=== PATIENT | male | born 1950 | race Caucasian/White ===

== ENCOUNTER 2017-06-26 14:51 | Inpatient (IN) | payer OTHER, BC ==
[~2017-06-26] VITALS: Ht 165.1 cm; Wt 85.6 kg
[~2017-06-26 14:51] MED LIST: ALBU8.5H3 INH; DOXA2TAB PO; GABA100C14 PO; GLIP-160 PO; LANT3I SC; LOSA25TA2 PO; MAG355OR15 PO; METF1000 PO; MULTI PO; NAPR500T8 PO; SENN-53 PO; SITA100T8 PO
[2017-06-26] MEDS ORDERED: ONDANSETRON 4 MG INJ IV STA (16:57)
[2017-06-26] MEDS ORDERED: morphine 4 MG/ML VIAL IV STA (16:57)
[2017-06-26] MEDS ORDERED: FAMOTIDINE 20 MG INJ IV STA (16:57)
[2017-06-26] MEDS ORDERED: SOD CHLORIDE 0.9% 1,000 ML IV STA (16:57)
[2017-06-26] MEDS ORDERED: ACETAMINOPHEN 325 MG TAB PO ONE (17:00)
[2017-06-26 17:19] LABS: ABNORMAL IP MESSAGE 1; BASOPHIL # 0.1 10^3/ul (0.0-0.1); BASOPHILS % 0.3 % (0.0-2.0); HEMATOCRIT 38.5 % (42.0-52.0); HEMOGLOBIN 13.7 g/dl (14.0-18.0); LYMPHOCYTES % 4.1 % (15.0-51.0); MEAN CORPUSCULAR HEMOGLOBIN 29.7 pg (29.0-33.0); MEAN CORPUSCULAR HGB CONC 35.6 g/dl (32.0-37.0); MEAN CORPUSCULAR VOLUME 83.5 fl (82.0-101.0); MEAN PLATELET VOLUME 13.7 fl (7.4-10.4); MONOCYTE # 1.7 10^3/ul (0.3-0.9); MONOCYTES % 6.9 % (0.0-11.0); NEUTROPHIL # 21.6 10^3/ul (1.6-7.5); NEUTROPHILS % 86.4 % (39.0-77.0); PLATELET COUNT 174 10^3/UL (140-415); POSITIVE DIFF @See below; RED BLOOD COUNT 4.61 10^6/ul (4.70-6.10); RED CELL DISTRIBUTION WIDTH 14.8 % (11.5-14.5); WHITE BLOOD COUNT 24.9 10^3/ul (4.8-10.8)
--- NOTE | 2017-06-26 17:32 | RADRPT ---
PROCEDURE: Right upper quadrant ultrasound CLINICAL INDICATION: Abdominal pain TECHNIQUE: Multiple real-time images were acquired of the patient's abdomen and right retroperiton eum utilizing a high resolution transducer. COMPARISON: None FINDINGS: The liver is increased in echogenicity and measures 17.5 cm. No focal hepatic masses are seen. The gallbladder is physiologically distended. There is no evidence of gallstones, gallbladder wall thi ckening, or pericholecystic fluid. The intra and extrahepatic bile ducts are normal in caliber. Th e common bile duct measures 3.5 mm. Pancreas is not visualized due to overlying bowel gas Survey views of the right kidney demonstrate no evidence of hydronephrosis or renal calculi. The ri ght kidney measures 11.9 cm. IMPRESSION: 1. No evidence of cholelithiasis or acute cholecystitis. 2. Fatty liver 3. Pancreas not visualized RPTAT: HH .Da Mckeon MD, Date Time Electronically viewed and signed by .Da Mckeon MD, MD on 06/26/2017 17:32 .W/
[2017-06-26 17:42] LABS: ALBUMIN 4.4 g/dl (3.3-4.9); ALBUMIN/GLOBULIN RATIO 1.18; BILIRUBIN,INDIRECT 1.3 mg/dl (0-1.1); BILIRUBIN,TOTAL 1.3 mg/dl (0.2-1.3); CALCIUM 10.1 mg/dl (8.4-10.2); CREATININE 0.72 mg/dl (0.61-1.24); POTASSIUM 4.1 mmol/L (3.5-5.1); TOTAL PROTEIN 8.1 g/dl (6.1-8.1)
[2017-06-26] MEDS ORDERED: SODIUM CHLORIDE 0.9% 1L BAG IV* STA (17:58)
[2017-06-26] MEDS ORDERED: PIPER-TAZO 3.375 GM IV (PMX) 100 ML IVPB STA (17:58)
--- NOTE | 2017-06-26 18:08 | ERA ---
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 No relieving or exacerbating factors. Anorexia but ate breakfast this morning. Denies nausea, vomiting, diarrhea or constipation. Mild dysuria but no polyuria, hematuria or flank pain. No recent travel, ill contacts or contaminated food exposure. His chest pain, palpitations or shortness of breath. No skin rash. Denies headache, neck pain , visual changes, focal weakness or numbness. Chills but no fevers. ROS All systems reviewed and are negative except as per history of present illness. Allergies Allergies: Coded Allergies: hydrocodone (Verified Allergy, Intermediate, DIFFICULTY BREATHING, ) PMhx/Soc Reviewed in chart. As per HPI. History of Surgery: Yes (appendectomy) Anesthesia Reaction: No Hx Neurological Disorder: No Hx Respiratory Disorders: No Hx Cardiac Disorders: Yes (htn) Hx Psychiatric Problems: No Hx Miscellaneous Medical Probl: Yes (dm, diverticulitis) Hx Alcohol Use: No Hx Substance Use: No Hx Tobacco Use: No Smoking Status: Never smoker FmHx Reviewed in chart. Not relevant to presenting complaint Physical Exam Vitals Vital Signs Date Time Temp Pulse Resp B/P Pulse Ox O2 Delivery O2 Flow Rate FiO2 06/26/17 22:27 72 17 121/62 95 Room Air 06/26/17 20:21 99.2 78 17 117/59 96 Room Air 06/26/17 14:56 100.6 84 18 128/60 97 Physical Exam Const: Alert, moderate distress due to pain Head: Atraumatic Eyes: Normal Conjunctiva. Anicteric. ENT: Normal External Ears, Nose and Mouth. Neck: Full range of motion. Nontender with no meningismus. Resp: Clear to auscultation bilaterally Cardio: Regular rate and rhythm, no murmurs Abd: Soft, diffuse, upper abdominal tenderness which localizes to the right upper quadrant. Positive Serrato sign. Skin: No petechiae or rashes Back: No midline or flank tenderness Ext: No cyanosis, or edema Neur: Awake and alert. Right-sided weakness with right claw hand. Psych: Normal Mood and Affect Result Diagram: 06/26/17 1705 06/26/17 1705 Results 24 hrs Laboratory Tests Test 06/26/17 17:05 06/26/17 17:07 06/26/17 18:00 06/26/17 18:33 White Blood Count 24.910^3/ul Red Blood Count 4.6110^6/ul Hemoglobin 13.7g/dl Hematocrit 38.5% Mean Corpuscular Volume 83.5fl Mean Corpuscular Hemoglobin 29.7pg Mean Corpuscular Hemoglobin Concent 35.6g/dl Red Cell Distribution Width 14.8% Platelet Count 29773^3/UL Mean Platelet Volume 13.7fl Neutrophils % 86.4% Lymphocytes % 4.1% Monocytes % 6.9% Eosinophils % 0.0% Basophils % 0.3% Nucleated Red Blood Cells % 0.0/100WBC Neutrophils # 21.610^3/ul Lymphocytes # 1.010^3/ul Monocytes # 1.710^3/ul Eosinophils # 0.010^3/ul Basophils # 0.110^3/ul Nucleated Red Blood Cells # 0.010^3/ul Sodium Level 139mmol/L Potassium Level 4.1mmol/L Chloride Level 100mmol/L Carbon Dioxide Level 26mmol/L Anion Gap 17 Blood Urea Nitrogen 19mg/dl Creatinine 0.72mg/dl Glucose Level 244mg/dl Calcium Level 10.1mg/dl Total Bilirubin 1.3mg/dl Direct Bilirubin 0.00mg/dl Indirect Bilirubin 1.3mg/dl Aspartate Amino Transf (AST/SGOT) 32IU/L Alanine Aminotransferase (ALT/SGPT) 58IU/L Alkaline Phosphatase 86IU/L Total Protein 8.1g/dl Albumin 4.4g/dl Globulin 3.70g/dl Albumin/Globulin Ratio 1.18 Lipase 48U/L Bedside Glucose 238mg/dL Lactic Acid Level 2.9mmol/L Urine Color YELLOW Urine Clarity CLEAR Urine pH 7.0 Urine Specific [place] 1.023 Urine Ketones 1+mg/dL Urine Nitrite NEGATIVEmg/dL Urine Bilirubin NEGATIVEmg/dL Urine Urobilinogen NEGATIVEmg/dL Urine Leukocyte Esterase NEGATIVELeu/ul Urine Microscopic RBC 1/HPF Urine Microscopic WBC 0/HPF Urine Hemoglobin NEGATIVEmg/dL Urine Glucose 3+mg/dL Urine Total Protein 1+mg/dl Test 06/26/17 19:58 06/26/17 21:07 06/26/17 21:52 Lactic Acid Level 2.3mmol/L 1.5mmol/L Bedside Glucose 166mg/dL Current Medications Medications (Trade) Dose Ordered Sig/Eve Route PRN Reason Start Time Stop Time Status Last Admin Dose Admin Sodium Chloride (NS) 1,000 ml @ 1,000 mls/hr Q1H STAT IV 06/26/17 16:57 06/26/17 17:56 DC 06/26/17 17:46 Morphine Sulfate (morphine) 4 mg ONCE STAT IV 06/26/17 16:57 06/26/17 17:01 DC 06/26/17 17:46 Ondansetron HCl (Zofran Inj) 4 mg ONCE STAT IV 06/26/17 16:57 06/26/17 17:01 DC 06/26/17 17:46 Famotidine (Pepcid Iv) 20 mg ONCE STAT IV 06/26/17 16:57 06/26/17 17:01 DC 06/26/17 17:46 Acetaminophen (Tylenol Tab) 650 mg ONCE ONCE PO 06/26/17 17:00 06/26/17 17:01 DC 06/26/17 17:46 Sodium Chloride 1600 ml 1,600 ml BOLUS OVER 2 HOURS STAT IV* 06/26/17 17:58 06/26/17 18:01 DC 06/26/17 18:04 Piperacillin Sod/ Tazobactam Sod (Zosyn 3.375gm/ 100 ml (Pmx)) 100 ml @ 200 mls/hr ONCE STAT IVPB 06/26/17 17:58 06/26/17 18:27 DC 06/26/17 18:15 IV Flush 10 ml 10 ml STK-MED ONCE .ROUTE 06/26/17 18:43 06/26/17 18:44 DC 06/26/17 18:50 Sodium Chloride (NS) 100 ml @ ud STK-MED ONCE .ROUTE 06/26/17 18:43 06/26/17 18:44 DC 06/26/17 18:50 Iohexol (Omnipaque 300mg/ ml) 150 ml STK-MED ONCE .ROUTE 06/26/17 18:43 06/26/17 18:44 DC 06/26/17 18:50 Ondansetron HCl (Zofran Inj) 4 mg ER BRIDGE PRN IV NAUSEA AND/OR VOMITING 06/26/17 20:00 06/26/17 20:10 DC Acetaminophen 650 mg 650 mg ER BRIDGE PRN PO MILD PAIN/FEVER 06/26/17 20:00 06/26/17 20:10 DC Dextrose/Sodium Chloride (D5-1/2ns) 1,000 ml @ 100 mls/hr Q10H IV 06/26/17 20:04 06/26/17 21:09 IV Flush (NS 3 ml) 3 ml PER PROTOCOL IV 06/26/17 20:30 Ondansetron HCl (Zofran Inj) 4 mg Q6H PRN IV NAUSEA AND/OR VOMITING 06/26/17 20:30 Acetaminophen (Tylenol Tab) 650 mg Q6H PRN PO PAIN LEVEL 1-3 OR FEVER 06/26/17 20:30 Hydromorphone HCl 0.5 mg 0.5 mg Q4H PRN IV SEVERE PAIN LEVEL 7-10 06/26/17 20:30 Piperacillin Sod/ Tazobactam Sod (Zosyn 3.375gm/ 100 ml (Pmx)) 100 ml @ 200 mls/hr ONCE IVPB 06/26/17 22:30 06/26/17 22:59 DC PROCEDURE: XR Chest. CLINICAL INDICATION: Possible sepsis. TECHNIQUE: Single frontal view of the chest COMPARISON: None. FINDINGS: Cardiomegaly. Atherosclerotic calcifications in the tortuous thoracic aorta. Elevated right hemidiaphragm. Mild vascular crowding at the right lung base. The lungs are otherwise clear. No signs of pleural fluid or pneumothorax are seen. The osseous structures and soft tissues are unremarkable. IMPRESSION: 1. Mild elevation right hemidiaphragm with mild vascular crowding at the right lung base. 2. Otherwise, no evidence for active cardiopulmonary disease. RPTAT: [facility] Physician Nimisha Date Time Electronically viewed and signed by Physician Nimisha on 06/26/2017 18:55 RS/ PROCEDURE: Right upper quadrant ultrasound CLINICAL INDICATION: Abdominal pain TECHNIQUE: Multiple real-time images were acquired of the patient's abdomen and right retroperitoneum utilizing a high resolution transducer. COMPARISON: None FINDINGS: The liver is increased in echogenicity and measures 17.5 cm. No focal hepatic masses are seen. The gallbladder is physiologically distended. There is no evidence of gallstones, gallbladder wall thickening, or pericholecystic fluid. The intra and extrahepatic bile ducts are normal in caliber. The common bile duct measures 3.5 mm. Pancreas is not visualized due to overlying bowel gas Survey views of the right kidney demonstrate no evidence of hydronephrosis or renal calculi. The right kidney measures 11.9 cm. IMPRESSION: 1. No evidence of cholelithiasis or acute cholecystitis. 2. Fatty liver 3. Pancreas not visualized RPTAT: HH .Da Mckeon MD, MD Date Time Electronically viewed and signed by .Da Mckeon MD, MD on 06/26/2017 17:32 .W/ PROCEDURE: CT ABDOMEN AND PELVIS WITH CONTRAST CLINICAL INDICATION: 66-year of age, male. 3-day history of upper abdominal pain.. TECHNIQUE: CT of the abdomen and pelvis was performed following administration of 90 mL IV Omnipaque-300. Oral contrast was not administered prior to the examination. Coronal and sagittal reformatted images were obtained from the axial source images. Images were reviewed on a high-resolution PACS workstation. Dose information: Based on a 32 cm phantom, the estimated radiation dose ( CTDIvol mGy for each series in this exam is 18. The estimated cumulative dose ( DLP mGy-cm) is 1076. One or more of the following dose reduction techniques were used: - Automated exposure control. - Adjustment of the mA and/or kV according to patient size. - Use of iterative reconstruction technique. COMPARISON: Right upper quadrant ultrasound from the same day FINDINGS: LUNG BASES: Mild coronary artery calcification. ABDOMEN/PELVIS: Liver: Diffuse hepatic steatosis and hepatomegaly. Liver measures 22 cm in length. Portal veins, splenic vein and SMV are patent. Hepatic veins are patent. Gallbladder: Gallbladder is distended with mild wall thickening and edema in the pericholecystic fat. Bile ducts: No intrahepatic or extrahepatic biliary duct dilatation. Spleen: Normal. Pancreas: Normal. Adrenal glands: Normal. Kidneys and ureters: Small bilateral renal parenchymal cysts measuring up to 2.4 cm in the lower pole of the right kidney. Punctate nonobstructing calculus lower pole left kidney. Kidneys are normal size. Negative for ureteral calculi or hydronephrosis. Aorta and IVC: Atherosclerotic calcification of aorta and iliac vessels. Negative for abdominal aortic aneurysm. IVC is patent Lymph nodes: Normal. Gastrointestinal tract: Colonic diverticulosis greatest in sigmoid colon without diverticulitis. Bowel loops are decompressed. Appendix: Surgically absent Bladder: Normal. Pelvic Organs: Prostate gland and seminal vesicles are unremarkable.. There is calcification of the vas deferens that suggests diabetes. Peritoneal cavity: No free fluid or free intraperitoneal air. Abdominal wall: Normal. BONES: Musculoskeletal: Multilevel degenerative changes in the spine. Status post laminectomy and posterior instrumented fusion with pedicle screws and rods from L4-S1. Height loss at T12 appears chronic. No suspicious bone lesions. IMPRESSION: 1. Distended gallbladder with wall thickening and pericholecystic edema is concerning for acute cholecystitis. Recent ultrasound was negative for gallstones and this could represent acalculous acute cholecystitis. Alternatively, gallbladder wall thickening may be due to liver disease. The patient may benefit from a HIDA scan. 2. Hepatic steatosis and hepatomegaly. Recommend correlation with liver tests to evaluate for potential steatohepatitis. 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 On arrival patient only had a low -grade fever but no other systemic inflammatory response syndrome criteria which was met due to leukocytosis of 24.6. Ultrasound of the right upper quadrant was negative for cholelithiasis or cholecystitis. However due to severe, ongoing pain and tenderness a CT scan of the abdomen and pelvis was performed which revealed dilated gallbladder with pericholecystic fluid consistent with acalculous cholecystitis. Severe sepsis initial lactate 2.9, repeat is pending. Within 3 hours of recognition patient received 30 cc/kg normal saline fluid bolus and Zosyn was given after cultures were obtained. No hypotension or criteria for septic shock. General surgery, Dr. Otoole was consulted. Patient's infectious symptoms have not stabilized and the patient is at risk of rapid decompensation. The patient will be admitted to telemetry for urgent surgical consultation, careful hydration, antibiotic therapy, and infectious source control. Counseled patient and family regarding diagnosis, diagnostic results and plan for admission. CALLS/CONSULTS: Time: 19:10, Dr. Pierce, will consult. CALLS/CONSULTS: Time: 19:40, Dr. Casiano, Recommends telemetry admission. PATIENT CARE TRANSITIONED: Time: 20:00, Dr. Casiano. Severe Sepsis criteria: Infectious source: Cholecystitis End organ damage indicated by: Lactate 2.9 Sepsis Management: Time systemic inflammatory response syndrome criteria met: 17:50 Time of recognition of severe sepsis/septic shock: 18:49 Within 3 hours of recognition: Blood cultures x 2 before broad-spectrum antibiotics: Yes 30 ml/kg NS bolus Completed Initial lactate 2.9 Repeat lactate 2.3 Septic Shock Assessment: Any lactic acid > 4.0 No Persistent hypotension (SBP < 90 or 40 mmHg drop, MAP < 65) despite 30 mL/kg IV fluid bolus: No Critical Care Time: 35 minutes Treatments/Evaluations: Close monitoring and treatment of unstable vital signs, cardiorespiratory, and neurologic status, while maintaining tight balance of fluid, respiratory, and cardiac interventions. This includes the administration of emergency fluid management while maintaining close respiratory support as well as the provision of immediate and broad-spectrum antibiotic therapy, while performing a simultaneous assessment for possible sources in order to direct targeted therapy. This time includes discussing the case with the patient and the patient's family. This time also includes the consideration for invasive and chemical support to prevent cardiopulmonary collapse. This time does not include all procedures stated elsewhere in this record. This time also includes reviewing old records, labs and radiological studies. This time includes examining and re-examining the patient. Additionally, this time also includes arranging care with admitting and consulting physicians. Departure Diagnosis: Primary Impression: Abdominal pain Qualified Code: R10.10 - Pain of upper abdomen Additional Impressions: Acute acalculous cholecystitis Severe sepsis Diabetes mellitus type 2 in obese Hypertension Qualified Code: I10 - Essential hypertension Condition: Serious JAMES LYON MD Jun 26, 2017 18:08
[2017-06-26] MEDS ORDERED: IOHEXOL 300MG/ML 150 ML BTL ONE (18:43)
[2017-06-26] MEDS ORDERED: SOD CHLORIDE 0.9% 100 ML ONE (18:43)
--- NOTE | 2017-06-26 18:55 | RADRPT ---
PROCEDURE: XR Chest. CLINICAL INDICATION: Possible sepsis. TECHNIQUE: Single frontal view of the chest COMPARISON: None. FINDINGS: Cardiomegaly. Atherosclerotic calcifications in the tortuous thoracic aorta. Elevated right hemidiaphragm. Mild vascular crowding at the right lung base. The lungs are otherwise clear. No signs of pleural fluid or pneumothorax are seen. The osseous structures and soft tissues are unremarkable. IMPRESSION: 1. Mild elevation right hemidiaphragm with mild vascular crowding at the right lung base. 2. Otherwise, no evidence for active cardiopulmonary disease. RPTAT: [facility] Physician Nimisha Date Time Electronically viewed and signed by Physician Nimisha on 06/26/2017 18:55 RS/
[2017-06-26 19:11] LABS: ADD UMIC YES; UR ASCORBIC ACID NEGATIVE (NEGATIVE); UR BILIRUBIN (Dip) NEGATIVE (NEGATIVE); UR BLOOD (Dip) NEGATIVE (NEGATIVE); UR CLARITY CLEAR (CLEAR); UR COLOR YELLOW (YELLOW); UR GLUCOSE (Dip) 3+ mg/dL (NEGATIVE); UR KETONES (Dip) 1+ mg/dL (NEGATIVE); UR LEUKOCYTE ESTERASE (Dip) NEGATIVE Leu/ul (NEGATIVE); UR NITRITE (Dip) NEGATIVE (NEGATIVE); UR RBC 1 /HPF (0-5); UR SPECIFIC GRAVITY (Dip) 1.023 (1.003-1.030); UR TOTAL PROTEIN (Dip) 1+ mg/dl (NEGATIVE); UR UROBILINOGEN (Dip) NEGATIVE (NEGATIVE)
--- NOTE | 2017-06-26 19:27 | RADRPT ---
PROCEDURE: CT ABDOMEN AND PELVIS WITH CONTRAST CLINICAL INDICATION: 66-year of age, male. 3-day history of upper abdominal pain.. TECHNIQUE: CT of the abdomen and pelvis was performed following administration of 90 mL IV Omnipaqu e-300. Oral contrast was not administered prior to the examination. Coronal and sagittal reformatted images were obtained from the axial source images. Images were revi ewed on a high-resolution PACS workstation. Dose information: Based on a 32 cm phantom, the estimated radiation dose (CTDIvol mGy for each serie s in this exam is 18. The estimated cumulative dose (DLP mGy-cm) is 1076. One or more of the following dose reduction techniques were used: - Automated exposure control. - Adjustment of the mA and/or kV according to patient size. - Use of iterative reconstruction technique. COMPARISON: Right upper quadrant ultrasound from the same day FINDINGS: LUNG BASES: Mild coronary artery calcification. ABDOMEN/PELVIS: Liver: Diffuse hepatic steatosis and hepatomegaly. Liver measures 22 cm in length. Portal veins, spl enic vein and SMV are patent. Hepatic veins are patent. Gallbladder: Gallbladder is distended with mild wall thickening and edema in the pericholecystic fat . Bile ducts: No intrahepatic or extrahepatic biliary duct dilatation. Spleen: Normal. Pancreas: Normal. Adrenal glands: Normal. Kidneys and ureters: Small bilateral renal parenchymal cysts measuring up to 2.4 cm in the lower cheryl e of the right kidney. Punctate nonobstructing calculus lower pole left kidney. Kidneys are normal s ize. Negative for ureteral calculi or hydronephrosis. Aorta and IVC: Atherosclerotic calcification of aorta and iliac vessels. Negative for abdominal aort ic aneurysm. IVC is patent Lymph nodes: Normal. Gastrointestinal tract: Colonic diverticulosis greatest in sigmoid colon without diverticulitis. Jewett el loops are decompressed. Appendix: Surgically absent Bladder: Normal. Pelvic Organs: Prostate gland and seminal vesicles are unremarkable.. There is calcification of the vas deferens that suggests diabetes. Peritoneal cavity: No free fluid or free intraperitoneal air. Abdominal wall: Normal. BONES: Musculoskeletal: Multilevel degenerative changes in the spine. Status post laminectomy and posterior instrumented fusion with pedicle screws and rods from L4-S1. Height loss at T12 appears chronic. N o suspicious bone lesions. IMPRESSION: 1. Distended gallbladder with wall thickening and pericholecystic edema is concerning for acute chol ecystitis. Recent ultrasound was negative for gallstones and this could represent acalculous acute c holecystitis. Alternatively, gallbladder wall thickening may be due to liver disease. The patient ma y benefit from a HIDA scan. 2. Hepatic steatosis and hepatomegaly. Recommend correlation with liver tests to evaluate for potent ial steatohepatitis. RPTAT: HCTS Physician Suzanne Date Time Electronically viewed and signed by Sissy Broderick Physician on 06/26/2017 19:27 /
[2017-06-26] MEDS ORDERED: ONDANSETRON 4 MG INJ IV PRN ×2 (20:00→20:30)
[2017-06-26] MEDS ORDERED: ACETAMINOPHEN 325 MG TAB PO PRN ×2 (20:00→20:30)
[2017-06-26 20:21] VITALS: TEMP 99.2
[2017-06-26] MEDS ORDERED: NACL 0.9% 3 ML SYG IV SCH (20:30)
[2017-06-26] MEDS ORDERED: HYDROmorphONE 0.5 MG/0.5 ML SYG IV PRN (20:30)
[2017-06-26] MEDS: DEXTROSE 5%-0.45% NACL 1,000 ML IV SCH (21:09)
[2017-06-26] MEDS ORDERED: PIPER-TAZO 3.375 GM IV (PMX) 100 ML IVPB SCH (22:30)
--- NOTE | 2017-06-26 23:14 | QN ---
Documentation Comment [id number] ASA ANTHONY MD Jun 26, 2017 23:14
[2017-06-26 23:16] VITALS: Ht 165.1 cm; Wt 85.6 kg
--- NOTE | 2017-06-26 23:17 | CONS ---
Date/Time of Note Date/Time of Note DATE: 06/26/17 TIME: 23:04 Assessment/Plan Assessment/Plan Chief Complaint/Hosp Course 1. Abdominal pain, significant leukocytosis, with imaging findings could be secondary to acalculous cholecystitis versus hepatitis versus fatty liver disease versus other -IV antibiotics -Judicious IV fluids -GI consult -Hepatitis panel -Consider HIDA -If not improving or worsening may benefit from surgical resection of the gallbladder 2. Diabetes -Diet and medication optimization encouraged -Weight optimization encouraged -If symptoms do not improve or worsen may consider gangrenous cholecystitis which would require urgent operation 3. Hypertension -Diet and medication optimization encouraged -Weight optimization encouraged 4. Anemia -Monitor 5. 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 Diverticulosis -Diet and nutritional optimization Thank you very much for consulting me in this patient's care, Problems: Consultation Date/Type/Reason Admit Date/Time Jun 26, 2017 at 22:59 Date of Consultation: Jun 26, 2017 Type of Consultation: General surgical Reason for Consultation Abdominal pain Central obesity Steatosis Possible acalculous cholecystitis Significant leukocytosis Referring Provider: JAMES LYON MD Hx of Present Illness Kristian Love is a 66yo male significant comorbidities presents to the ED with family complaining of a 3 day history of worsening, sharp and crampy, nonradiating, diffuse upper abdominal pain. No relieving or exacerbating factors. Anorexia but ate breakfast this morning. Denies nausea, vomiting, diarrhea or constipation. Mild dysuria but no polyuria, hematuria or flank pain. No recent travel, ill contacts or contaminated food exposure. Denies chest pain, palpitations or shortness of breath. No skin rash. Denies headache , neck pain, visual changes, focal weakness or numbness. Reports chills but no fevers. His workup in the emergency room is identified leukocytosis with CT diagnosis of gallbladder wall thickening however ultrasound is without inflammatory changes of the gallbladder. Patient is being admitted with possible acute acalculous cholecystitis and surgical consult is obtained further evaluation and treatment. 12 point review of systems negative unless addressed in HPI Past Medical History Diabetes Hypertension West Nile encephalitis Guillain [place] Significant leukocytosis Central obesity Diverticulitis history Anemia Hyperglycemia Steatosis Gallbladder wall thickening (cholecystitis versus abnormal liver) Past Surgical History Appendectomy in 2013 Family History Significant Family History: no pertinent family hx Social History Smoking Status: Never smoker Drug Use: none Exam/Review of Systems Vital Signs Vitals Vital Signs Date Time Temp Pulse Resp B/P Pulse Ox O2 Delivery O2 Flow Rate FiO2 06/26/17 22:27 72 17 121/62 95 Room Air 06/26/17 20:21 99.2 Exam Constitutional: alert, obese, oriented, No distress Psych: nl mood/affect (Central), No anxiety, No confusion Head: atraumatic, normocephalic Eyes: EOMI, PERRL, nl conjunctiva, No icteric ENMT: mucosa pink and moist, nl external ears & nose, nl lips & teeth Neck: non-tender, No jvd Respiratory: normal air movement, No congested cough, No labored breathing, No wheezing Cardiovascular: nl pulses, regular rate and rhythm, No edema Gastrointestinal: distended, non-tender, soft, No rebound or guarding Genitourinary - Male: nl scrotum Musculoskeletal: nl extremities to inspection, nl gait and stance Extremities: normal pulses, No calf tenderness, No cyanosis Neurological: nl mental status, nl speech Skin: nl turgor, No diaphoresis, No rash or lesions Lymph: nl lymph nodes, nontender Results Result Diagram: 06/26/17 1705 06/26/17 1705 Results 24 hrs Laboratory Tests Test 06/26/17 17:05 06/26/17 17:07 06/26/17 18:00 06/26/17 18:33 White Blood Count 24.9 H Red Blood Count 4.61 L Hemoglobin 13.7 L Hematocrit 38.5 L Mean Corpuscular Volume 83.5 Mean Corpuscular Hemoglobin 29.7 Mean Corpuscular Hemoglobin Concent 35.6 Red Cell Distribution Width 14.8 H Platelet Count 174 Mean Platelet Volume 13.7 H Neutrophils % 86.4 H Lymphocytes % 4.1 L Monocytes % 6.9 Eosinophils % 0.0 Basophils % 0.3 Nucleated Red Blood Cells % 0.0 Neutrophils # 21.6 H Lymphocytes # 1.0 Monocytes # 1.7 H Eosinophils # 0.0 Basophils # 0.1 Nucleated Red Blood Cells # 0.0 Sodium Level 139 Potassium Level 4.1 Chloride Level 100 Carbon Dioxide Level 26 Anion Gap 17 H Blood Urea Nitrogen 19 Creatinine 0.72 Glucose Level 244 H Calcium Level 10.1 Total Bilirubin 1.3 Direct Bilirubin 0.00 Indirect Bilirubin 1.3 H Aspartate Amino Transf (AST/SGOT) 32 Alanine Aminotransferase (ALT/SGPT) 58 Alkaline Phosphatase 86 Total Protein 8.1 Albumin 4.4 Globulin 3.70 H Albumin/Globulin Ratio 1.18 Lipase 48 Bedside Glucose 238 H Lactic Acid Level 2.9 *H Urine Color YELLOW Urine Clarity CLEAR Urine pH 7.0 Urine Specific [place] 1.023 Urine Ketones 1+ H Urine Nitrite NEGATIVE Urine Bilirubin NEGATIVE Urine Urobilinogen NEGATIVE Urine Leukocyte Esterase NEGATIVE Urine Microscopic RBC 1 Urine Microscopic WBC 0 Urine Hemoglobin NEGATIVE Urine Glucose 3+ H Urine Total Protein 1+ H Test 06/26/17 19:58 06/26/17 21:07 06/26/17 21:52 Lactic Acid Level 2.3 *H 1.5 Bedside Glucose 166 Medications Medications Current Medications Dextrose/Sodium Chloride (D5-1/2ns) 1,000 ml @ 100 mls/hr Q10H IV Last administered on 06/26/17t 21:09; Admin Dose 100 MLS/HR; Start 06/26/17 at 20: 04 Ondansetron HCl (Zofran Inj) 4 mg Q6H PRN IV NAUSEA AND/OR VOMITING; Start at 20:30 Acetaminophen (Tylenol Tab) 650 mg Q6H PRN PO PAIN LEVEL 1-3 OR FEVER; Start 06/26/17 at 20:30 Hydromorphone HCl (Dilaudid) 0.5 mg Q4H PRN IV SEVERE PAIN LEVEL 7-10; Start 06/26/17 at 20:30 Pantoprazole (Protonix Iv) 40 mg DAILY@06 IV ; Start 06/27/17 at 06:00 YEFRI MIR MD Jun 26, 2017 23:17
[2017-06-26 23:31] VITALS: BP 106/55; PULSE 70; RESP 18
[2017-06-26] MEDS ORDERED: GLUCOSE GEL 15 GRAM TUBE BUCCAL PRN (23:45)
[2017-06-26] MEDS ORDERED: DEXTROSE 50% 50 ML SYRINGE IV PRN ×2 (23:45)
[2017-06-26] MEDS ORDERED: GLUCAGON 1 MG INJ IM PRN (23:45)
[2017-06-26] MEDS ORDERED: GLUCOSE GEL 15 GRAM TUBE PO PRN ×2 (23:45)
[2017-06-27] MEDS: ACCU-CHEK XX SCH (02:00)
[2017-06-27] MEDS ORDERED: ACCU-CHEK XX SCH (02:00)
[2017-06-27 02:08] VITALS: BP 112/56; RESP 20
[2017-06-27] MEDS: DEXTROSE 5%-0.45% NACL 1,000 ML IV SCH ×2 (05:22→17:05)
[2017-06-27] MEDS ORDERED: PANTOPRAZOLE 40 MG INJ IV SCH (06:00)
--- NOTE | 2017-06-27 07:09 | HP ---
DATE OF ADMISSION: 06/26/2017 HISTORY OF PRESENT ILLNESS: Kristian Love is a 66-year-old male with history of diabetes mellitus, a history of Guillain-[place] syndrome. The patient also has a history of appendectomy, history of West Nile virus infection in the past with weakness, presented with abdominal pain, fever, nausea. The patient noted to have , blood pressure 117/59 and glucose 238, potassium 4.1. WBC 24.9, hematocrit 38.5, platelet count of . Ultrasound of the gallbladder, no evidence of cholelithiasis or acute cholecystitis, fatty liver, mild elevation of right hemidiaphragm with _ noted. Abdominopelvic CT scan shows patient has a distended gallbladder with wall thickening and pericholecystic edema, concerning for acute cholecystitis, hepatic steatosis and patient is being admitted for further management. PAST MEDICAL HISTORY: Diabetes, hypertension, history of West Nile virus infection, history of Guillain-[place] syndrome, history of appendectomy. ALLERGY HISTORY: HYDROCODONE. SOCIAL HISTORY: Negative. FAMILY HISTORY: Negative. MEDICATIONS AT HOME: Patient is on insulin. REVIEW OF SYSTEMS: HEENT: Unremarkable. RESPIRATORY: Unremarkable. CARDIOVASCULAR: Unremarkable. ABDOMEN: As mentioned above. EXTREMITIES: Unremarkable. PHYSICAL EXAMINATION: GENERAL: Obese, overweight male, awake, alert. VITAL SIGNS: As mentioned above. HEAD: Atraumatic, normocephalic. Pupils equal, reactive to light. NECK: Supple. No JVD. LUNGS: Clear. CARDIOVASCULAR: S1, S2 normal. ABDOMEN: Soft, obese. Bowel sounds positive. No palpable mass. Tenderness noted in the epigastric area. EXTREMITIES: There is no cyanosis, clubbing, edema. CENTRAL NERVOUS SYSTEM: The patient is awake, alert. No focal deficits. LABORATORY DATA: As mentioned above. IMPRESSION: 1. Acalculous cholecystitis. 2. Leukocytosis. 3. Obesity. 4. Anemia. PLAN: Give him IV fluid, antibiotic, PPI, pain medication. Surgical consultation orders were done. Dictated By: ASA ANDREA/NTS Conf#: [id number] DID#: [id number] MTDD
[2017-06-27 08:00] VITALS: BP 106/52; RESP 20
[2017-06-27] MEDS: INSULIN ASPART [NOVOLOG] 3 ML PEN SC SCH ×4 (08:02→20:32)
--- NOTE | 2017-06-27 10:31 | PN ---
Date/Time of Note Date/Time of Note DATE: 06/27/17 TIME: 10:24 Assessment/Plan VTE Prophylaxis VTE Prophylaxis Intervention: contraindicated Lines/Catheters IV [facility] ([facility]): Peripheral IV Urinary Cath still in place: No Assessment/Plan Chief Complaint/Hosp Course A/P 66 y/o with # Epigastric pain with significant leukocytosis, with imaging findings could be secondary to acalculous cholecystitis vs Gerd vs Gastritis, Lipase wnl # Diabetes # Hypertension # Steatosis and BMI 27 with central obesity # Hx of West Nile encephalitis infection # hx of Guillain [place] # Lactic acidosis Plan - Per surgery will call GI and get HIDA - NPO - IV Fluids - Hepatitis panel - iv zosyn - Repeat labs - cx pending - c/w PPI Problems: Subjective 24 Hr Interval Summary Free Text/Dictation Abdominal pain improved a bit Exam/Review of Systems Vital Signs Vitals Vital Signs Date Time Temp Pulse Resp B/P Pulse Ox O2 Delivery O2 Flow Rate FiO2 06/27/17 02:08 98.7 85 20 112/56 96 06/26/17 23:31 Room Air Intake and Output 06/26/17 06/26/17 06/27/17 15:00 23:00 07:00 Intake Total 100 ml 200 ml Balance 100 ml 200 ml Exam GENERAL: Obese, overweight male, awake, alert. VITAL SIGNS: As mentioned above. HEAD: Atraumatic, normocephalic. Pupils equal, reactive to light. NECK: Supple. No JVD. LUNGS: Clear. CARDIOVASCULAR: S1, S2 normal. ABDOMEN: Soft, obese. Bowel sounds positive. No palpable mass. Tenderness noted in the epigastric area. EXTREMITIES: There is no cyanosis, clubbing, edema. CENTRAL NERVOUS SYSTEM: The patient is awake, alert. No focal deficits Results Result Diagram: 06/26/17 1705 06/26/17 1705 Results 24 hrs Laboratory Tests Test 06/26/17 17:05 06/26/17 17:07 06/26/17 18:00 06/26/17 18:33 White Blood Count 24.9 H Red Blood Count 4.61 L Hemoglobin 13.7 L Hematocrit 38.5 L Mean Corpuscular Volume 83.5 Mean Corpuscular Hemoglobin 29.7 Mean Corpuscular Hemoglobin Concent 35.6 Red Cell Distribution Width 14.8 H Platelet Count 174 Mean Platelet Volume 13.7 H Neutrophils % 86.4 H Lymphocytes % 4.1 L Monocytes % 6.9 Eosinophils % 0.0 Basophils % 0.3 Nucleated Red Blood Cells % 0.0 Neutrophils # 21.6 H Lymphocytes # 1.0 Monocytes # 1.7 H Eosinophils # 0.0 Basophils # 0.1 Nucleated Red Blood Cells # 0.0 Sodium Level 139 Potassium Level 4.1 Chloride Level 100 Carbon Dioxide Level 26 Anion Gap 17 H Blood Urea Nitrogen 19 Creatinine 0.72 Glucose Level 244 H Calcium Level 10.1 Total Bilirubin 1.3 Direct Bilirubin 0.00 Indirect Bilirubin 1.3 H Aspartate Amino Transf (AST/SGOT) 32 Alanine Aminotransferase (ALT/SGPT) 58 Alkaline Phosphatase 86 Total Protein 8.1 Albumin 4.4 Globulin 3.70 H Albumin/Globulin Ratio 1.18 Lipase 48 Bedside Glucose 238 H Lactic Acid Level 2.9 *H Urine Color YELLOW Urine Clarity CLEAR Urine pH 7.0 Urine Specific [place] 1.023 Urine Ketones 1+ H Urine Nitrite NEGATIVE Urine Bilirubin NEGATIVE Urine Urobilinogen NEGATIVE Urine Leukocyte Esterase NEGATIVE Urine Microscopic RBC 1 Urine Microscopic WBC 0 Urine Hemoglobin NEGATIVE Urine Glucose 3+ H Urine Total Protein 1+ H Test 06/26/17 19:58 06/26/17 21:07 06/26/17 21:52 06/27/17 02:50 Lactic Acid Level 2.3 *H 1.5 Bedside Glucose 166 216 Test 06/27/17 07:56 Bedside Glucose 218 Medications Medications Current Medications Dextrose/Sodium Chloride (D5-1/2ns) 1,000 ml @ 100 mls/hr Q10H IV Last administered on 06/27/17 05:22; Admin Dose 100 MLS/HR; Start 06/26/17 at 20: 04 Ondansetron HCl (Zofran Inj) 4 mg Q6H PRN IV NAUSEA AND/OR VOMITING; Start at 20:30 Acetaminophen (Tylenol Tab) 650 mg Q6H PRN PO PAIN LEVEL 1-3 OR FEVER; Start 06/26/17 at 20:30 Hydromorphone HCl (Dilaudid) 0.5 mg Q4H PRN IV SEVERE PAIN LEVEL 7-10 Last administered on 06/27/17 10:22; Admin Dose 0.5 MG; Start 06/26/17 at 20:30 Pantoprazole (Protonix Iv) 40 mg DAILY@06 IV Last administered on 06/27/17t 05 :22; Admin Dose 40 MG; Start 06/27/17 at 06:00 Diagnostic Test (Pha) (Accu-Chek) 1 ea 02 XX ; Start 06/27/17 at 02:00 Diagnostic Test (Pha) (Accu-Chek) 1 ea 02 XX ; Start 06/27/17 at 02:00 Miscellaneous Information 1 ea NOTE XX ; Start 06/26/17 at 23:45 Glucose (Glutose) 15 gm Q15M PRN PO DECREASED GLUCOSE; Start 06/26/17 at 23:45 Glucose (Glutose) 22.5 gm Q15M PRN PO DECREASED GLUCOSE; Start 06/26/17 at 23: 45 Dextrose (D50w Syringe) 25 ml Q15M PRN IV DECREASED GLUCOSE; Start 06/26/17 at 23:45 Dextrose (D50w Syringe) 50 ml Q15M PRN IV DECREASED GLUCOSE; Start 06/26/17 at 23:45 Glucagon (Glucagen) 1 mg Q15M PRN IM DECREASED GLUCOSE; Start 06/26/17 at 23: 45 Glucose 15 gm 15 gm Q15M PRN BUCCAL DECREASED GLUCOSE; Start 06/26/17 at 23:45 Piperacillin Sod/ Tazobactam Sod (Zosyn 3.375gm/ 100 ml (Pmx)) 100 ml @ 200 mls /hr Q8 IVPB ; Start 06/27/17 at 14:00; Status NORMA JACK MD Jun 27, 2017 10:31
[2017-06-27 11:50] LABS: ABNORMAL IP MESSAGE 1; BASOPHIL # 0.1 10^3/ul (0.0-0.1); BASOPHILS % 0.3 % (0.0-2.0); EOSINOPHILS # 0.1 10^3/ul (0.0-0.5); EOSINOPHILS % 0.4 % (0.0-7.0); HEMATOCRIT 39.6 % (42.0-52.0); HEMOGLOBIN 12.3 g/dl (14.0-18.0); LYMPHOCYTES # 1.4 10^3/ul (0.8-2.9); LYMPHOCYTES % 6.7 % (15.0-51.0); MEAN CORPUSCULAR HEMOGLOBIN 26.6 pg (29.0-33.0); MEAN CORPUSCULAR HGB CONC 31.1 g/dl (32.0-37.0); MEAN CORPUSCULAR VOLUME 85.5 fl (82.0-101.0); MEAN PLATELET VOLUME 13.8 fl (7.4-10.4); MONOCYTE # 1.2 10^3/ul (0.3-0.9); NEUTROPHIL # 17.2 10^3/ul (1.6-7.5); PLATELET COUNT 162 10^3/UL (140-415); POSITIVE DIFF @See below; RED BLOOD COUNT 4.63 10^6/ul (4.70-6.10); RED CELL DISTRIBUTION WIDTH 15.3 % (11.5-14.5); WHITE BLOOD COUNT 20.2 10^3/ul (4.8-10.8)
--- NOTE | 2017-06-27 12:05 | CONS ---
DATE OF ADMISSION: 06/26/2017 DATE OF CONSULTATION: GASTROINTESTINAL CONSULTATION Dear and Dr. Anthony: Thank you for asking me to see Mr. Love in GI consultation. HISTORY OF PRESENT ILLNESS: The patient, as you know, is a 66-year-old male, has been expe riencing epigastric and right upper quadrant pain for the past 3 days. Pain has been persistent, as sociated with nausea and not with significant vomiting, no fever. He has not had a similar pain in the past. He has no history of dysphagia, no GI bleeding, no diarrhea. Ultrasound showed unremarkable finding s. CAT scan showed a possible acalculous cholecystitis with gallbladder wall thickening and pericho lecystic fluid. Patient seen by Dr. Otoole, who does not believe it is acute cholecystitis. The patient is disabled from work because he fell down. SOCIAL HISTORY: The patient does not smoke or drink. REVIEW OF SYSTEM: Essentially as mentioned above. Some anemia, some obesity was also reported. PHYSICAL EXAMINATION: GENERAL: The patient is a 66-year-old male who at this time is alert, well built. VITAL SIGNS: Temperature 98.7, blood pressure is 112/56. CARDIOVASCULAR: Normal heart sounds. RESPIRATORY: Normal breath sounds. ABDOMEN: Shows soft abdomen with no palpable masses, no tenderness, no distention. LABORATORY WORKUP: WBC count is 24,900, hemoglobin is 13.7 and the potassium 4.1. Lactic acid is 2 .9. AST 32, ALT 58, alkaline phosphatase 86, lipase is 48. IMAGING STUDIES: As I mentioned. CAT scan of the abdomen shows a possible acalculous cholecystitis , hepatic steatosis, hepatomegaly noted. CLINICAL IMPRESSION: The patient presenting with history of abdominal pain. It is possible patient may have passed a gallstone. Certainly, he could have acalculous cholecystitis. Rule out choledoc holithiasis, although there is no biliary dilatation; however, a MRCP will be helpful to study the a natomy of the gallbladder, biliary system and the liver, as well as pancreas. PLAN: As I mentioned, MRCP, repeat liver panel will be performed and we will follow the patient karina glass. Once again, doctor, thank you for this consultation. Dictated By: AROLDO ZAMORANO/MARQUIS Conf#: [id number] [facility]#: [id number] CC: ASA ANTHONY MD; ;*End*
[2017-06-27 12:29] LABS: AMYLASE 33 U/L (11-123)
[2017-06-27 12:30] LABS: ALBUMIN 3.6 g/dl (3.3-4.9); ALBUMIN/GLOBULIN RATIO 1.05; CALCIUM 8.6 mg/dl (8.4-10.2); CREATININE 0.71 mg/dl (0.61-1.24); POTASSIUM 4.3 mmol/L (3.5-5.1)
--- NOTE | 2017-06-27 13:28 | PN ---
Date/Time of Note Date/Time of Note DATE: 06/27/17 TIME: 13:11 Assessment/Plan Lines/Catheters IV Catheter Type (from [facility]): Peripheral IV Awad in Place (from [facility]): No Assessment/Plan Assessment/Plan 1. Abdominal pain, significant leukocytosis, with imaging findings could be secondary to acalculous cholecystitis versus hepatitis versus fatty liver disease versus other: LFT's nl; leukocytosis improving; pending mrcp -IV antibiotics -Judicious IV fluids -GI consult noted -Hepatitis panel -If not improving or worsening may benefit from surgical resection of the gallbladder 2. Diabetes with ketonuria -Diet and medication optimization encouraged -Weight optimization encouraged -If symptoms do not improve or worsen may consider gangrenous cholecystitis which would require urgent operation 3. Hypertension -Diet and medication optimization encouraged -Weight optimization encouraged 4. Anemia: no acute bleed noted -Monitor and transfuse prn 5. Steatosis and BMI 27 with central obesity -Encourage nutrition optimization -Encourage exercise 6. 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 Diverticulosis -Diet and nutritional optimization Thank you. Patient seen and examined in collaboration with Dr. Michael Otoole. Subjective 24 Hr Interval Summary Abdominal pain improving. +bowel function. Leukocytosis improving. Min temp. No fevers, chills, sob, congested cough, n/v/d/dysuria, baez, dizziness, cp, palpitations. Exam/Review of Systems Vital Signs Vitals Vital Signs Date Time Temp Pulse Resp B/P Pulse Ox O2 Delivery O2 Flow Rate FiO2 06/27/17 02:08 98.7 85 20 112/56 96 06/26/17 23:31 Room Air Intake and Output 06/26/17 06/26/17 06/27/17 15:00 23:00 07:00 Intake Total 100 ml 200 ml Balance 100 ml 200 ml Exam Free Text/Dictation Constitutional: alert, obese, oriented, No distress Psych: nl mood/affect (Central), No anxiety, No confusion Head: atraumatic, normocephalic Eyes: EOMI, PERRL, nl conjunctiva, icteric ENMT: mucosa pink and moist, nl external ears & nose, nl lips & teeth Neck: non-tender, No jvd Respiratory: normal air movement, No congested cough, No labored breathing, No wheezing Cardiovascular: nl pulses, regular rate and rhythm, No edema Gastrointestinal: distended, tender- RU/LQ, soft, No rebound or guarding Genitourinary - Male: nl scrotum Musculoskeletal: nl extremities to inspection, nl gait and stance Extremities: normal pulses, No calf tenderness, No cyanosis Neurological: nl mental status, nl speech Skin: nl turgor, No diaphoresis, No rash or lesions Lymph: nl lymph nodes, nontender Results Result Diagram: 06/27/17 1122 06/27/17 1122 JOSE VARGAS NP Jun 27, 2017 13:21
[2017-06-27 14:00] VITALS: BP 113/58; RESP 20
--- NOTE | 2017-06-27 16:29 | RADRPT ---
PROCEDURE: HIDA scan CLINICAL INDICATION: 66 -year-old patient with abdominal pain. TECHNIQUE: Following the intravenous injection of 8.3 mCi of Tc-99m Mebrofenin, multiple anterior dynamic images of the abdomen along with numerous planar spot images of the abdomen were obtained up to 90 minutes post injection. COMPARISON: No prior HIDA scans. FINDINGS: The liver is promptly visualized, demonstrates homogeneous distribution of radionuclide. There is a visualization of the common bile duct and gastrointestinal activity within normal time. The gallbladder is not visualized up to 90 minutes post injection. IMPRESSION: 1. Nonvisualization of the gallbladder up to 90 minutes post injection. 2. No evidence of a common bile duct obstruction. Delayed images to follow. RPTAT: HH .Karoline Foster MD, Date Time Electronically viewed and signed by .Karoline Foster MD, MD on 06/27/2017 16:29 .L/
[2017-06-27] MEDS: PIPER-TAZO 3.375 GM IV (PMX) 100 ML IVPB SCH ×2 (17:05→23:11)
[2017-06-27] MEDS ORDERED: VANCOMYCIN IV PER PHARMACY XX SCH (18:00)
[2017-06-27 19:49] VITALS: BP 134/60; RESP 18
[2017-06-27] MEDS ORDERED: VANCOMYCIN 1.75 GM in NS 500 ML IVPB SCH (20:00)
--- NOTE | 2017-06-27 20:04 | RADRPT ---
PROCEDURE: MRI abdomen without contrast; MRCP CLINICAL INDICATION: abdominal pain TECHNIQUE: Axial and coronal T2 92 fat-saturated images are obtained. In addition, a dedicated high T2 signal intensity MRCP images were obtained in multiple planes with 3-D reconstructions. COMPARISON: CT 06/26/1979 nuclear medicine scan done the same date as MRI FINDINGS: MRCP: There is wall thickening of the gallbladder seen with adjacent fat stranding and trace fluid. No vis ible stones are seen on MRI. There is no intrahepatic or extrahepatic biliary ductal dilatation with no visible filling defects within the common duct. Common duct is not dilated measuring less than 5 mm in diameter. There is no pancreatic ductal dilatation. MRI abdomen: There is uniform signal intensity of the liver without evidence of mass. Evaluation for fatty infilt ration cannot be performed without a gradient images. There is a flow void seen within the portal ve in without gross evidence for portal vein thrombus. The kidneys are symmetric without hydronephrosis or mass. A right lower pole renal cyst is visualiz ed. The adrenal glands are within normal limits. The pancreas is uniform without surrounding inflam mation. There is a mildly fecal filled colon present without obstruction. There is no free fluid. Aortic ath erosclerosis is partially visualized. Degenerative changes are seen in the lumbar spine. IMPRESSION: Cholecystitis is present without visible cholelithiasis. There is no biliary ductal dilatation or MRI evidence for choledocholithiasis. Fecal filled colon. Atherosclerotic disease. Fatty liver seen on prior CT is not visualized on the MRI as gradient images are not obtained. RPTAT: AA .Jennifer Servin MD, MD Date Time Electronically viewed and signed by .Jennifer Servin MD, MD on 06/27/2017 20:04 .[place]/
[2017-06-27] MEDS: FAMOTIDINE 20 MG INJ IV SCH (20:35)
[2017-06-28] MEDS: ACCU-CHEK XX SCH (02:00)
[2017-06-28] MEDS: DEXTROSE 5%-0.45% NACL 1,000 ML IV SCH ×2 (02:04→12:26)
[2017-06-28 02:08] VITALS: BP 134/65; RESP 18
[2017-06-28] MEDS: PIPER-TAZO 3.375 GM IV (PMX) 100 ML IVPB SCH ×3 (06:07→21:46)
[2017-06-28 06:37] LABS: ABNORMAL IP MESSAGE 1; BASOPHIL # 0.1 10^3/ul (0.0-0.1); BASOPHILS % 0.4 % (0.0-2.0); EOSINOPHILS # 0.2 10^3/ul (0.0-0.5); EOSINOPHILS % 1.5 % (0.0-7.0); HEMATOCRIT 36.7 % (42.0-52.0); HEMOGLOBIN 11.6 g/dl (14.0-18.0); LYMPHOCYTES # 1.5 10^3/ul (0.8-2.9); LYMPHOCYTES % 9.8 % (15.0-51.0); MEAN CORPUSCULAR HEMOGLOBIN 26.5 pg (29.0-33.0); MEAN CORPUSCULAR HGB CONC 31.6 g/dl (32.0-37.0); MEAN PLATELET VOLUME 13.3 fl (7.4-10.4); MONOCYTE # 1.4 10^3/ul (0.3-0.9); MONOCYTES % 8.7 % (0.0-11.0); NEUTROPHIL # 12.2 10^3/ul (1.6-7.5); PLATELET COUNT 157 10^3/UL (140-415); POSITIVE DIFF @See below; RED BLOOD COUNT 4.37 10^6/ul (4.70-6.10); RED CELL DISTRIBUTION WIDTH 15.3 % (11.5-14.5); WHITE BLOOD COUNT 15.4 10^3/ul (4.8-10.8)
[2017-06-28 07:04] LABS: ALBUMIN 3.2 g/dl (3.3-4.9); ALBUMIN/GLOBULIN RATIO 1.03; BILIRUBIN,INDIRECT 0.7 mg/dl (0-1.1); BILIRUBIN,TOTAL 0.7 mg/dl (0.2-1.3); CALCIUM 8.3 mg/dl (8.4-10.2); CREATININE 0.72 mg/dl (0.61-1.24); POTASSIUM 3.7 mmol/L (3.5-5.1); TOTAL PROTEIN 6.3 g/dl (6.1-8.1)
[2017-06-28 07:52] VITALS: BP 163/68; RESP 18
[2017-06-28] MEDS: INSULIN ASPART [NOVOLOG] 3 ML PEN SC SCH ×4 (08:02→20:17)
[2017-06-28] MEDS: FAMOTIDINE 20 MG INJ IV SCH ×2 (08:32→20:12)
[2017-06-28] MEDS ORDERED: VANCOMYCIN 1 GM in NS 250 ML IVPB SCH (10:00)
[2017-06-28] MEDS: VANCOMYCIN 1 GM in NS 250 ML IVPB SCH ×2 (11:08→22:46)
--- NOTE | 2017-06-28 13:32 | CONS ---
DATE OF ADMISSION: 06/26/2017 DATE OF CONSULTATION: 06/28/2017 TYPE OF CONSULTATION: Infectious Disease. REASON FOR CONSULTATION: Antibiotic management. HISTORY OF PRESENT ILLNESS: Kristian Love is a 66-year-old male with numerous problems, be ing admitted with distended gallbladder and possible cholecystitis. His past problems include: 1. Adult-onset diabetes mellitus. 2. Hypertension. 3. History of West Nile virus. 4. History of Guillain-[place] syndrome. 5. Appendectomy. 6. ALLERGY TO HYDROCODONE. The patient was initially admitted with the diagnoses of acalculous cholecystitis, leukocytosis, obe sity and anemia. His white count on admission was 24.9, H and H of 13.7 and 38.5, platelet count of 174,000. Today his white count is 15.4. Urine also was negative for nitrite and leukocyte esteras e. His gallbladder ultrasound showed no evidence of cholelithiasis or acute cholecystitis. Chest x -ray: Mild elevation of the right hemidiaphragm, no evidence of cardiopulmonary disease. CT scan o f the abdomen and pelvis - distended gallbladder with wall thickening, pericholecystic edema concern ing for acute cholecystitis, he may benefit from a HIDA scan. The HIDA scan showed nonvisualization of the gallbladder up to 90 minutes post-injection, no evidence for common bile duct obstruction. An abdominal MRI was done which showed cholecystitis without visible cholelithiasis, no biliary duct al dilatation, fatty liver seen on prior CT scan not visualized. The patient was seen by Dr. Lyon , he said it is possible that the patient had passed a gallstone, he could have acalculous cholecyst itis, an MRCP will be helpful to study the anatomy of the gallbladder, biliary system, etc. Mikie ng to Dr. Otoole and his nurse practitioner, the abdominal pain is improving, leukocytosis is impro ving, and the patient's white count was 20.2. PAST MEDICAL HISTORY: Operations as outlined. FAMILY HISTORY: Noncontributory. SOCIAL HISTORY: He does not smoke, drink or abuse drugs. ALLERGIES: NONE TO PENICILLIN, SULFA OR FOODS. MEDICATIONS: Per chart. REVIEW OF SYSTEMS: As per HPI. PHYSICAL EXAMINATION: GENERAL: The patient is an obese male who is alert, responsive, in no acute distress. VITAL SIGNS: Stable. He is afebrile. SKIN: Without generalized rash. HEENT: Within normal limits. NECK: Supple. LYMPH NODES: None palpable. CHEST: Decreased breath sounds at the bases. HEART: Without murmur or gallop. ABDOMEN: Soft, it is distended, there is tenderness in the right upper and right lower quadrant, so ft without rebound. EXTREMITIES: Without cyanosis, clubbing, or edema. RECTAL AND GENITAL EXAM: Deferred. NEUROLOGICAL EVALUATION: No focal neurological abnormality. IMPRESSION AND PLAN: The patient may have acalculous cholecystitis versus hepatitis versus fatty li jeovanny. The patient is noted to have an MRI which did not show any evidence of ductal dilatation. He had coagulase negative staph in 1 blood culture which is probable contaminant. The patient is curre ntly on vancomycin and Zosyn. At some point, we will discontinue the vancomycin. I will dictate my findings to Dr. Yinka Anthony and the aforementioned physicians. Dictated By: DEXTER SCHULZ MD, JD/MARQUIS Conf#: [id number] DID#: [id number] CC: YINKA ANTHONY MD;*EndCC*
[2017-06-28 14:00] VITALS: BP 149/76; RESP 20
--- NOTE | 2017-06-28 15:20 | PN ---
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[place] # Lactic acidosis Plan - Still had fevers yesterday - MRCP negative for CBD dilatatation - HIDA showed non visiualisation of GB 90 minutes post injection - Spoke to Dr Otoole pt will need Surgery - NPO - IV Fluids - iv zosyn - Repeat labs - cx pending , repeat bld cx negative so far - c/w PPI Problems: Subjective 24 Hr Interval Summary Free Text/Dictation Fevers 101 yesterday Some abdominal pain on deep palpation Exam/Review of Systems Vital Signs Vitals Vital Signs Date Time Temp Pulse Resp B/P Pulse Ox O2 Delivery O2 Flow Rate FiO2 06/28/17 14:00 98.5 65 20 149/76 97 06/26/17 23:31 Room Air Intake and Output 06/27/17 06/27/17 06/28/17 15:00 23:00 07:00 Intake Total 800 ml 100 ml 860 ml Output Total 800 ml Balance 800 ml 100 ml 60 ml Results GENERAL: Obese, overweight male, awake, alert. VITAL SIGNS: As mentioned above. HEAD: Atraumatic, normocephalic. Pupils equal, reactive to light. NECK: Supple. No JVD. LUNGS: Clear. CARDIOVASCULAR: S1, S2 normal. ABDOMEN: Soft, obese. Bowel sounds positive. No palpable mass. Tenderness noted in the epigastric area on deep palpation EXTREMITIES: There is no cyanosis, clubbing, edema. CENTRAL NERVOUS SYSTEM: The patient is awake, alert. No focal deficits Result Diagram: 06/28/1752006/28/17520 Results 24 hrs Laboratory Tests Test 06/27/17 18:20 06/27/17 20:31 06/28/17 05:21 06/28/17 07:55 Bedside Glucose 201 177 214 White Blood Count 15.4 #H Red Blood Count 4.37 L Hemoglobin 11.6 L Hematocrit 36.7 L Mean Corpuscular Volume 84.0 Mean Corpuscular Hemoglobin 26.5 L Mean Corpuscular Hemoglobin Concent 31.6 L Red Cell Distribution Width 15.3 H Platelet Count 157 Mean Platelet Volume 13.3 H Neutrophils % 79.0 H Lymphocytes % 9.8 L Monocytes % 8.7 Eosinophils % 1.5 Basophils % 0.4 Nucleated Red Blood Cells % 0.0 Neutrophils # 12.2 H Lymphocytes # 1.5 Monocytes # 1.4 H Eosinophils # 0.2 Basophils # 0.1 Nucleated Red Blood Cells # 0.0 Sodium Level 141 Potassium Level 3.7 Chloride Level 107 Carbon Dioxide Level 23 Anion Gap 15 Blood Urea Nitrogen 14 Creatinine 0.72 Glucose Level 202 Calcium Level 8.3 L Total Bilirubin 0.7 Direct Bilirubin 0.00 Indirect Bilirubin 0.7 Aspartate Amino Transf (AST/SGOT) 25 Alanine Aminotransferase (ALT/SGPT) 52 Alkaline Phosphatase 87 Total Protein 6.3 Albumin 3.2 L Globulin 3.10 Albumin/Globulin Ratio 1.03 Test 06/28/17 12:23 Bedside Glucose 229 H Medications Medications Current Medications Dextrose/Sodium Chloride (D5-1/2ns) 1,000 ml @ 100 mls/hr Q10H IV Last administered on 06/28/17 12:26; Admin Dose 100 MLS/HR; Start 06/26/17 at 20: 04 Ondansetron HCl (Zofran Inj) 4 mg Q6H PRN IV NAUSEA AND/OR VOMITING; Start at 20:30 Acetaminophen (Tylenol Tab) 650 mg Q6H PRN PO PAIN LEVEL 1-3 OR FEVER Last administered on 06/27/17 21:24; Admin Dose 650 MG; Start 06/26/17 at 20:30 Hydromorphone HCl (Dilaudid) 0.5 mg Q4H PRN IV SEVERE PAIN LEVEL 7-10 Last administered on 06/27/17 10:22; Admin Dose 0.5 MG; Start 06/26/17 at 20:30 Diagnostic Test (Pha) (Accu-Chek) 1 ea 02 XX ; Start 06/27/17 at 02:00 Miscellaneous Information 1 ea NOTE XX ; Start 06/26/17 at 23:45 Glucose (Glutose) 15 gm Q15M PRN PO DECREASED GLUCOSE; Start 06/26/17 at 23:45 Glucose (Glutose) 22.5 gm Q15M PRN PO DECREASED GLUCOSE; Start 06/26/17 at 23: 45 Dextrose (D50w Syringe) 25 ml Q15M PRN IV DECREASED GLUCOSE; Start 06/26/17 at 23:45 Dextrose (D50w Syringe) 50 ml Q15M PRN IV DECREASED GLUCOSE; Start 06/26/17 at 23:45 Glucagon (Glucagen) 1 mg Q15M PRN IM DECREASED GLUCOSE; Start 06/26/17 at 23: 45 Glucose 15 gm 15 gm Q15M PRN BUCCAL DECREASED GLUCOSE; Start 06/26/17 at 23:45 Piperacillin Sod/ Tazobactam Sod (Zosyn 3.375gm/ 100 ml (Pmx)) 100 ml @ 200 mls /hr Q8 IVPB Last administered on 06/28/17 14:19; Admin Dose 200 MLS/HR; Start 06/27/17 at 14:00 Famotidine 20 mg 20 mg Q12 IV Last administered on 06/28/17 08:32; Admin Dose 20 MG; Start 06/27/17 at 21:00 Vancomycin HCl (Vancocin) 250 ml @ 125 mls/hr Q12H IVPB Last administered on 06/28/17 11:08; Admin Dose 125 MLS/HR; Start 06/28/17 at 10:30 Miscellaneous Information (*Rx Drug Level Order Reminder*) 1 ONCE ONCE XX ; Start 06/29/17 at 09:30; Stop 06/29/17 at 09:31 NORMA CORDOBA MD Jun 28, 2017 15:20
[2017-06-28 16:57] LABS: INR 1.24; PROTIME 15.7 Sec (12.2-14.2); PT RATIO 1.2
[2017-06-28 19:37] VITALS: BP 171/79; RESP 20
[2017-06-28] MEDS ORDERED: hydrALAzine 20 MG INJ IV PRN (20:00)
[2017-06-28] MEDS: INSULIN GLARGINE [LANtus] 3 ML PEN SC SCH (20:19)
--- NOTE | 2017-06-28 22:55 | PN ---
Date/Time of Note Date/Time of Note DATE: 06/28/17 TIME: 22:55 Assessment/Plan Lines/Catheters IV Catheter Type (from [facility]): Peripheral IV Awad in Place (from [facility]): No Exam/Review of Systems Vital Signs Vitals Vital Signs Date Time Temp Pulse Resp B/P Pulse Ox O2 Delivery O2 Flow Rate FiO2 06/28/17 19:37 99.0 65 20 171/79 97 06/26/17 23:31 Room Air Intake and Output 06/27/17 06/27/17 06/28/17 15:00 23:00 07:00 Intake Total 800 ml 100 ml 860 ml Output Total 800 ml Balance 800 ml 100 ml 60 ml Results Result Diagram: 06/28/17 0521 06/28/17 0521 JOSE VARGAS NP Jun 28, 2017 22:55
[2017-06-29 01:59] VITALS: BP 157/76; RESP 20
[2017-06-29] MEDS: ACCU-CHEK XX SCH (02:05)
[2017-06-29] MEDS: DEXTROSE 5%-0.45% NACL 1,000 ML IV SCH ×2 (03:55→08:04)
[2017-06-29] MEDS: PIPER-TAZO 3.375 GM IV (PMX) 100 ML IVPB SCH ×3 (05:36→21:16)
[2017-06-29 06:41] LABS: ABNORMAL IP MESSAGE 1; BASOPHIL # 0.1 10^3/ul (0.0-0.1); BASOPHILS % 0.4 % (0.0-2.0); EOSINOPHILS # 0.3 10^3/ul (0.0-0.5); EOSINOPHILS % 2.2 % (0.0-7.0); HEMATOCRIT 37.3 % (42.0-52.0); HEMOGLOBIN 11.4 g/dl (14.0-18.0); LYMPHOCYTES # 1.5 10^3/ul (0.8-2.9); LYMPHOCYTES % 12.3 % (15.0-51.0); MEAN CORPUSCULAR HEMOGLOBIN 25.7 pg (29.0-33.0); MEAN CORPUSCULAR HGB CONC 30.6 g/dl (32.0-37.0); MEAN PLATELET VOLUME 13.2 fl (7.4-10.4); MONOCYTE # 1.4 10^3/ul (0.3-0.9); MONOCYTES % 11.2 % (0.0-11.0); NEUTROPHIL # 9.1 10^3/ul (1.6-7.5); NEUTROPHILS % 73.3 % (39.0-77.0); PLATELET COUNT 192 10^3/UL (140-415); POSITIVE DIFF @See below; RED BLOOD COUNT 4.44 10^6/ul (4.70-6.10); RED CELL DISTRIBUTION WIDTH 15.7 % (11.5-14.5); WHITE BLOOD COUNT 12.5 10^3/ul (4.8-10.8)
[2017-06-29 07:13] LABS: ALBUMIN 3.3 g/dl (3.3-4.9); ALBUMIN/GLOBULIN RATIO 1.03; BILIRUBIN,INDIRECT 0.6 mg/dl (0-1.1); BILIRUBIN,TOTAL 0.6 mg/dl (0.2-1.3); CREATININE 0.78 mg/dl (0.61-1.24); POTASSIUM 3.7 mmol/L (3.5-5.1); TOTAL PROTEIN 6.5 g/dl (6.1-8.1)
[2017-06-29 07:30] VITALS: BP 161/74; RESP 18
[2017-06-29] MEDS: FAMOTIDINE 20 MG INJ IV SCH ×2 (08:05→21:09)
[2017-06-29] MEDS: INSULIN GLARGINE [LANtus] 3 ML PEN SC SCH ×2 (08:09→21:11)
[2017-06-29] MEDS: INSULIN ASPART [NOVOLOG] 3 ML PEN SC SCH ×4 (08:09→21:19)
--- NOTE | 2017-06-29 11:53 | PN ---
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[place] # Lactic acidosis Plan - MRCP negative for CBD dilatatation - Pt does not want cholecystectomy due to risk of complications - Advance diet - Stool studies for dark and loose stool - c/w Zosyn - d/c vanco - d/c fluids - iv zosyn - Repeat labs - c/w PPI Problems: Subjective 24 Hr Interval Summary Free Text/Dictation Abdominal pain improving Pt has concerns about going to surgery, said he is worried about complications of surgery and wants to defer it fo rnow, wants condervative treatment Spoke to family and patient at bedside with help of cashier clerk Exam/Review of Systems Vital Signs Vitals Vital Signs Date Time Temp Pulse Resp B/P Pulse Ox O2 Delivery O2 Flow Rate FiO2 06/29/17 07:30 98.2 69 18 161/74 96 06/26/17 23:31 Room Air Intake and Output 06/28/17 06/28/17 06/29/17 15:00 23:00 07:00 Intake Total 350 ml 700 ml 850 ml Output Total 701 ml 300 ml Balance 350 ml -1 ml 550 ml Exam ENERAL: Obese, overweight male, awake, alert. VITAL SIGNS: As mentioned above. HEAD: Atraumatic, normocephalic. Pupils equal, reactive to light. NECK: Supple. No JVD. LUNGS: Clear. CARDIOVASCULAR: S1, S2 normal. ABDOMEN: Soft, obese. Bowel sounds positive. No palpable mass. Tenderness noted in the epigastric area on deep palpation EXTREMITIES: There is no cyanosis, clubbing, edema. CENTRAL NERVOUS SYSTEM: The patient is awake, alert. No focal deficits Results Result Diagram: 06/29/17 0545 06/29/17 0545 Results 24 hrs Laboratory Tests Test 06/28/17 12:23 06/28/17 16:22 06/28/17 17:21 06/28/17 20:13 Bedside Glucose 229 H 202 209 Prothrombin Time 15.7 H Prothrombin Time Ratio 1.2 INR International Normalized Ratio 1.24 Hemoglobin A1c 8.9 H Test 06/29/17 01:26 06/29/17 05:45 06/29/17 08:06 06/29/17 10:19 Bedside Glucose 212 232 H White Blood Count 12.5 H Red Blood Count 4.44 L Hemoglobin 11.4 L Hematocrit 37.3 L Mean Corpuscular Volume 84.0 Mean Corpuscular Hemoglobin 25.7 L Mean Corpuscular Hemoglobin Concent 30.6 L Red Cell Distribution Width 15.7 H Platelet Count 192 # Mean Platelet Volume 13.2 H Neutrophils % 73.3 Lymphocytes % 12.3 L Monocytes % 11.2 H Eosinophils % 2.2 Basophils % 0.4 Nucleated Red Blood Cells % 0.0 Neutrophils # 9.1 H Lymphocytes # 1.5 Monocytes # 1.4 H Eosinophils # 0.3 Basophils # 0.1 Nucleated Red Blood Cells # 0.0 Sodium Level 142 Potassium Level 3.7 Chloride Level 106 Carbon Dioxide Level 25 Anion Gap 15 Blood Urea Nitrogen 12 Creatinine 0.78 Glucose Level 216 Calcium Level 8.0 L Total Bilirubin 0.6 Direct Bilirubin 0.00 Indirect Bilirubin 0.6 Aspartate Amino Transf (AST/SGOT) 25 Alanine Aminotransferase (ALT/SGPT) 51 Alkaline Phosphatase 87 Total Protein 6.5 Albumin 3.3 Globulin 3.20 Albumin/Globulin Ratio 1.03 Vancomycin Level Trough 8.0 L Medications Medications Current Medications Ondansetron HCl (Zofran Inj) 4 mg Q6H PRN IV NAUSEA AND/OR VOMITING; Start at 20:30 Acetaminophen (Tylenol Tab) 650 mg Q6H PRN PO PAIN LEVEL 1-3 OR FEVER Last administered on 06/27/17 21:24; Admin Dose 650 MG; Start 06/26/17 at 20:30 Hydromorphone HCl (Dilaudid) 0.5 mg Q4H PRN IV SEVERE PAIN LEVEL 7-10 Last administered on 06/27/17 10:22; Admin Dose 0.5 MG; Start 06/26/17 at 20:30 Diagnostic Test (Pha) (Accu-Chek) 1 ea 02 XX Last administered on 06/29/17 02 :05; Admin Dose 1 EA; Start 06/27/17 at 02:00 Miscellaneous Information 1 ea NOTE XX ; Start 06/26/17 at 23:45 Glucose (Glutose) 15 gm Q15M PRN PO DECREASED GLUCOSE; Start 06/26/17 at 23:45 Glucose (Glutose) 22.5 gm Q15M PRN PO DECREASED GLUCOSE; Start 06/26/17 at 23: 45 Dextrose (D50w Syringe) 25 ml Q15M PRN IV DECREASED GLUCOSE; Start 06/26/17 at 23:45 Dextrose (D50w Syringe) 50 ml Q15M PRN IV DECREASED GLUCOSE; Start 06/26/17 at 23:45 Glucagon (Glucagen) 1 mg Q15M PRN IM DECREASED GLUCOSE; Start 06/26/17 at 23: 45 Glucose 15 gm 15 gm Q15M PRN BUCCAL DECREASED GLUCOSE; Start 06/26/17 at 23:45 Piperacillin Sod/ Tazobactam Sod (Zosyn 3.375gm/ 100 ml (Pmx)) 100 ml @ 200 mls /hr Q8 IVPB Last administered on 06/29/17 05:36; Admin Dose 200 MLS/HR; Start 06/27/17 at 14:00 Famotidine 20 mg 20 mg Q12 IV Last administered on 06/29/17 08:05; Admin Dose 20 MG; Start 06/27/17 at 21:00 Vancomycin HCl (Vancocin) 250 ml @ 125 mls/hr Q12H IVPB Last administered on 06/28/17 22:46; Admin Dose 125 MLS/HR; Start 06/28/17 at 10:30; Stop at 16:00 Insulin Glargine (Lantus) 10 unit DAILY@08 SC Last administered on 06/29/17 08:09; Admin Dose 10 UNIT; Start 06/29/17 at 08:00 Insulin Glargine (Lantus) 7 unit QHS SC Last administered on 06/28/17 20:19; Admin Dose 7 UNIT; Start 06/28/17 at 21:00 Hydralazine HCl (Apresoline) 5 mg Q6H PRN IV SBP ABOVE 170 Last administered on 06/28/17 20:12; Admin Dose 5 MG; Start 10/17/17 at 20:00 NORMA CORDOBA MD Jun 29, 2017 11:53
--- NOTE | 2017-06-29 12:02 | PN ---
DATE: 06/28/2017 SUBJECTIVE: At this time, upon questioning the patient, he says he has no significant abdominal jaxon n. The patient was admitted to the hospital with epigastric pain. There was evidence of a cholecystiti s noted on the CAT scan. The liver functions were normal. The MRI was ordered which showed evidenc e of cholecystitis. There was no evidence of choledocholithiasis. HIDA scan showed evidence of non visualization of the gallbladder at 90 minutes. CLINICAL IMPRESSION: It appears that patient had a cholecystitis, probable acute, although clinical ly he is not tender, not toxic. Still his white count was 26,000, which came down to 15,000, indica ting he still has ongoing cholecystitis. PLAN: I would recommend cholecystectomy. Dictated By: AROLDO PELAEZ MD NC/NTS Conf#: [id number] DID#: [id number] CC: ASA ANTHONY MD;*EndCC*
[2017-06-29] MEDS: VANCOMYCIN 1 GM in NS 250 ML IVPB SCH (12:03)
[2017-06-29] MEDS: GABAPENTIN 100 MG CAP PO SCH ×2 (13:17→21:09)
[2017-06-29] MEDS: DOXAZOSIN 2 MG TAB PO SCH ×2 (13:18→21:10)
[2017-06-29] MEDS: LOSARTAN 25 MG TAB PO SCH (13:18)
[2017-06-29 13:52] VITALS: BP 128/72; RESP 18
--- NOTE | 2017-06-29 13:59 | PN ---
DATE: 06/29/2017 SUBJECTIVE: No acute changes. The patient is alert, feels good, looks comfortable. He has been af ebrile for 48 hours. WBC today 12.5, H and H 11.1 and 37.8, platelets 192, neutrophils 73.3, BUN 12, creatinine 0.78. MICROBIOLOGY: Blood culture on admission grew coagulase-negative staph species. Repeat blood cultu res negative. DIAGNOSTICS: MRI of the abdomen revealed cholecystitis without visible cholelithiasis, no biliary d uctal dilatation or MRI evidence of choledocholithiasis, fecal filled colon. ANTIMICROBIALS: The patient is on: 1. Vancomycin. 2. Zosyn. PHYSICAL EXAMINATION: GENERAL: This is a well-nourished, well-developed elderly man who is awake, in no distress . HEENT: Head atraumatic, normocephalic. Sclerae anicteric. Buccal mucosa dry. NECK: Supple. CHEST: Rise symmetrical. Breath sounds clear. HEART: S1, S2. ABDOMEN: Soft, bowel tones present. EXTREMITIES: Without cyanosis or edema. SKIN: No jaundice, no cyanosis. ASSESSMENT: 1. Coagulase-negative Staphylococcus bacteremia consistent with contaminant. 2. Acute cholecystitis, no evidence of choledocholithiasis. 3. Diabetes. 4. Hypertension. 5. 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 PLAN: Patient remains stable. We are going to discontinue vancomycin, keep him on Zosyn. Continue present care. Follow surgical and gastroenterology recommendations. Dictated By: LIZ AVILA [employer]PLE[employer] RESOURCES MANAGER for DEXTER SCANLON/MARQUIS Conf#: [id number] DID#: [id number]
[2017-06-29] MEDS: glipiZIDE (XL) 5 MG TAB PO SCH ×2 (16:19→21:10)
[2017-06-29 19:26] VITALS: BP 140/65; RESP 20
[2017-06-29] MEDS ORDERED: VANCOMYCIN 1.5 GM in SOD CHLORIDE 0.9% 250 ML IVPB SCH (20:00)
[2017-06-29] MEDS ORDERED: VANCOMYCIN 1.25 GM in SOD CHLORIDE 0.9% 250 ML IVPB SCH (20:00)
--- NOTE | 2017-06-29 21:10 | PN ---
Date/Time of Note Date/Time of Note DATE: 06/29/17 TIME: 21:10 Assessment/Plan Lines/Catheters IV C[facility]ter Type (from [facility]): Saline Lock Awad in Place (from [facility]): No Assessment/Plan Chief Complaint/Hosp Course 1. Abdominal pain, significant leukocytosis, with imaging findings could be secondary to acalculous cholecystitis versus hepatitis versus fatty liver disease versus other -IV antibiotics -Judicious IV fluids -GI consult -Hepatitis panel -Consider HIDA -If not improving or worsening may benefit from surgical resection of the gallbladder 2. Diabetes -Diet and medication optimization encouraged -Weight optimization encouraged -If symptoms do not improve or worsen may consider gangrenous cholecystitis which would require urgent operation 3. Hypertension -Diet and medication optimization encouraged -Weight optimization encouraged 4. Anemia -Monitor 5. Steatosis and BMI 27 with central obesity -Encourage nutrition optimization -Encourage exercise 6. West Nile encephalitis history -Per medical team 7. Guillain [place] -Medical optimization 8. Diverticulosis -Diet and nutritional optimization Thank you very much for consulting me in this patient's care, Problems: Exam/Review of Systems Vital Signs Vitals Vital Signs Date Time Temp Pulse Resp B/P Pulse Ox O2 Delivery O2 Flow Rate FiO2 06/29/17 19:26 99.5 60 20 140/65 96 06/26/17 23:31 Room Air Intake and Output 06/28/17 06/28/17 06/29/17 15:00 23:00 07:00 Intake Total 350 ml 700 ml 850 ml Output Total 701 ml 300 ml Balance 350 ml -1 ml 550 ml Results Result Diagram: 06/29/17 0545 06/29/17 0545 YEFRI MIR MD Jun 29, 2017 21:10
[2017-06-30 01:55] VITALS: BP 152/72; RESP 20
[2017-06-30] MEDS: ACCU-CHEK XX SCH (02:11)
[2017-06-30] MEDS: PIPER-TAZO 3.375 GM IV (PMX) 100 ML IVPB SCH ×3 (05:30→21:36)
[2017-06-30 05:44] LABS: BASOPHIL # 0.1 10^3/ul (0.0-0.1); BASOPHILS % 0.7 % (0.0-2.0); EOSINOPHILS # 0.4 10^3/ul (0.0-0.5); EOSINOPHILS % 4.1 % (0.0-7.0); HEMATOCRIT 36.4 % (42.0-52.0); HEMOGLOBIN 11.6 g/dl (14.0-18.0); LYMPHOCYTES # 1.6 10^3/ul (0.8-2.9); LYMPHOCYTES % 18.1 % (15.0-51.0); MEAN CORPUSCULAR HEMOGLOBIN 26.7 pg (29.0-33.0); MEAN CORPUSCULAR HGB CONC 31.9 g/dl (32.0-37.0); MEAN CORPUSCULAR VOLUME 83.7 fl (82.0-101.0); MEAN PLATELET VOLUME 12.1 fl (7.4-10.4); MONOCYTE # 1.3 10^3/ul (0.3-0.9); MONOCYTES % 14.7 % (0.0-11.0); NEUTROPHIL # 5.4 10^3/ul (1.6-7.5); NEUTROPHILS % 61.9 % (39.0-77.0); PLATELET COUNT 221 10^3/UL (140-415); RED BLOOD COUNT 4.35 10^6/ul (4.70-6.10); RED CELL DISTRIBUTION WIDTH 15.4 % (11.5-14.5); WHITE BLOOD COUNT 8.6 10^3/ul (4.8-10.8)
--- NOTE | 2017-06-30 05:51 | PN ---
DATE: 06/30/2017 The patient admitted with abdominal pain. Cholecystitis is considered. Pain is much better n ow. PHYSICAL EXAMINATION: GENERAL: He is alert and not in distress. VITAL SIGNS: Temperature 98.2, blood pressure 128/72, pulse is 63. ABDOMEN: Unremarkable. LABORATORY WORKUP: WBC count is 12,500, hemoglobin 11.4. The potassium is 3.7. The liver panel is perfectly normal today. HIDA scan shows nonvisualization of the gallbladder in 90 minutes. CLINICAL IMPRESSION: Findings are consistent with acute cholecystitis. PLAN: Continue present management and also follow the instructions from the surgeon. Dictated By: AROLDO ZAMORANO/MARQUIS Conf#: [id number] DID#: [id number]
[2017-06-30 06:07] LABS: MAGNESIUM 1.9 mg/dl (1.7-2.5); PHOSPHORUS 3.9 mg/dl (2.5-4.9)
[2017-06-30 06:14] LABS: ALBUMIN/GLOBULIN RATIO 0.81; BILIRUBIN,INDIRECT 0.7 mg/dl (0-1.1); BILIRUBIN,TOTAL 0.7 mg/dl (0.2-1.3); CALCIUM 8.5 mg/dl (8.4-10.2); CREATININE 0.71 mg/dl (0.61-1.24); POTASSIUM 3.3 mmol/L (3.5-5.1); TOTAL PROTEIN 6.7 g/dl (6.1-8.1)
[2017-06-30 07:21] VITALS: BP 152/72; RESP 18
[2017-06-30] MEDS ORDERED: NAPROXEN 500 MG XX SCH (08:00)
[2017-06-30] MEDS ORDERED: [UNRECOGNIZED DRUG - OTHER] XX SCH (08:00)
[2017-06-30] MEDS: INSULIN ASPART [NOVOLOG] 3 ML PEN SC SCH ×4 (08:13→20:53)
[2017-06-30] MEDS: FAMOTIDINE 20 MG INJ IV SCH ×2 (08:14→20:45)
[2017-06-30] MEDS: GABAPENTIN 100 MG CAP PO SCH ×3 (08:14→20:41)
[2017-06-30] MEDS: LOSARTAN 25 MG TAB PO SCH (08:15)
[2017-06-30] MEDS: glipiZIDE (XL) 5 MG TAB PO SCH ×2 (08:15→20:50)
[2017-06-30] MEDS: INSULIN GLARGINE [LANtus] 3 ML PEN SC SCH ×2 (08:27→20:52)
[2017-06-30] MEDS ORDERED: POTASSIUM CHLORIDE (SR) 20 MEQ TAB PO STA (08:36)
--- NOTE | 2017-06-30 09:52 | PN ---
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[place] # Lactic acidosis Plan - MRCP negative for CBD dilatatation - Pt does not want cholecystectomy due to risk of complications - Advance diet to full liquids then as tolerated - c/w Zosyn - Possible dc tmw if tolearted diet - Repeat labs - c/w PPI Problems: Subjective 24 Hr Interval Summary Free Text/Dictation Overall feeling better Able to tolerate liquids Exam/Review of Systems Vital Signs Vitals Vital Signs Date Time Temp Pulse Resp B/P Pulse Ox O2 Delivery O2 Flow Rate FiO2 06/30/17 07:21 97.6 66 18 152/72 94 06/26/17 23:31 Room Air Intake and Output 06/29/17 06/29/17 06/30/17 15:00 23:00 07:00 Intake Total 750 ml 1320 ml 580 ml Output Total 600 ml Balance 750 ml 720 ml 580 ml Exam NERAL: Obese, overweight male, awake, alert. VITAL SIGNS: As mentioned above. HEAD: Atraumatic, normocephalic. Pupils equal, reactive to light. NECK: Supple. No JVD. LUNGS: Clear. CARDIOVASCULAR: S1, S2 normal. ABDOMEN: Soft, obese. Bowel sounds positive. No palpable mass. Tenderness noted in the epigastric area on deep palpation improved EXTREMITIES: There is no cyanosis, clubbing, edema. CENTRAL NERVOUS SYSTEM: The patient is awake, alert. No focal deficits Results Result Diagram: 06/30/1752006/30/17520 Results 24 hrs Laboratory Tests Test 06/29/17 10:06/29/17 12:02 06/29/17 14:00 06/29/17 17:26 Vancomycin Level Trough 8.0 L Bedside Glucose 209 191 Stool Occult Blood NEGATIVE Test 06/29/17 21:07 06/30/17 02:12 06/30/17 05:21 06/30/17 08:10 Bedside Glucose 190 142 122 White Blood Count 8.6 # Red Blood Count 4.35 L Hemoglobin 11.6 L Hematocrit 36.4 L Mean Corpuscular Volume 83.7 Mean Corpuscular Hemoglobin 26.7 L Mean Corpuscular Hemoglobin Concent 31.9 L Red Cell Distribution Width 15.4 H Platelet Count 221 Mean Platelet Volume 12.1 H Neutrophils % 61.9 Lymphocytes % 18.1 Monocytes % 14.7 H Eosinophils % 4.1 Basophils % 0.7 Nucleated Red Blood Cells % 0.0 Neutrophils # 5.4 Lymphocytes # 1.6 Monocytes # 1.3 H Eosinophils # 0.4 Basophils # 0.1 Nucleated Red Blood Cells # 0.0 Sodium Level 145 H Potassium Level 3.3 L Chloride Level 111 H Carbon Dioxide Level 27 Anion Gap 10 # Blood Urea Nitrogen 10 Creatinine 0.71 Glucose Level 115 # Calcium Level 8.5 Phosphorus Level 3.9 Magnesium Level 1.9 Total Bilirubin 0.7 Direct Bilirubin 0.00 Indirect Bilirubin 0.7 Aspartate Amino Transf (AST/SGOT) 23 Alanine Aminotransferase (ALT/SGPT) 53 Alkaline Phosphatase 88 Total Protein 6.7 Albumin 3.0 L Globulin 3.70 H Albumin/Globulin Ratio 0.81 Medications Medications Current Medications Ondansetron HCl (Zofran Inj) 4 mg Q6H PRN IV NAUSEA AND/OR VOMITING; Start at 20:30 Acetaminophen (Tylenol Tab) 650 mg Q6H PRN PO PAIN LEVEL 1-3 OR FEVER Last administered on 06/27/17 21:24; Admin Dose 650 MG; Start 06/26/17 at 20:30 Hydromorphone HCl (Dilaudid) 0.5 mg Q4H PRN IV SEVERE PAIN LEVEL 7-10 Last administered on 06/27/17 10:22; Admin Dose 0.5 MG; Start 06/26/17 at 20:30 Diagnostic Test (Pha) (Accu-Chek) 1 ea 02 XX Last administered on 06/30/17 02 :11; Admin Dose 1 EA; Start 06/27/17 at 02:00 Miscellaneous Information 1 ea NOTE XX ; Start 06/26/17 at 23:45 Glucose (Glutose) 15 gm Q15M PRN PO DECREASED GLUCOSE; Start 06/26/17 at 23:45 Glucose (Glutose) 22.5 gm Q15M PRN PO DECREASED GLUCOSE; Start 06/26/17 at 23: 45 Dextrose (D50w Syringe) 25 ml Q15M PRN IV DECREASED GLUCOSE; Start 06/26/17 at 23:45 Dextrose (D50w Syringe) 50 ml Q15M PRN IV DECREASED GLUCOSE; Start 06/26/17 at 23:45 Glucagon (Glucagen) 1 mg Q15M PRN IM DECREASED GLUCOSE; Start 06/26/17 at 23: 45 Glucose 15 gm 15 gm Q15M PRN BUCCAL DECREASED GLUCOSE; Start 06/26/17 at 23:45 Piperacillin Sod/ Tazobactam Sod (Zosyn 3.375gm/ 100 ml (Pmx)) 100 ml @ 200 mls /hr Q8 IVPB Last administered on 06/30/17 05:30; Admin Dose 200 MLS/HR; Start 06/27/17 at 14:00 Famotidine (Pepcid Iv) 20 mg Q12 IV Last administered on 06/30/17 08:14; Admin Dose 20 MG; Start 06/27/17 at 21:00 Insulin Glargine (Lantus) 10 unit DAILY@08 SC Last administered on 06/30/17 08:27; Admin Dose 10 UNIT; Start 06/29/17 at 08:00 Insulin Glargine (Lantus) 7 unit QHS SC Last administered on 06/29/17 21:11; Admin Dose 7 UNIT; Start 06/28/17 at 21:00 Hydralazine HCl (Apresoline) 5 mg Q6H PRN IV SBP ABOVE 170 Last administered on 06/28/17 20:12; Admin Dose 5 MG; Start 06/28/17 at 20:00 Doxazosin Mesylate (Cardura) 2 mg DAILY@21 PO Last administered on 06/29/17 21:10; Admin Dose 2 MG; Start 06/29/17 at 12:00 Gabapentin (Neurontin) 300 mg TID PO Last administered on 06/30/17 08:14; Admin Dose 300 MG; Start 06/29/17 at 13:00 Glipizide (Glucotrol Xl) 10 mg BID PO Last administered on 06/30/17 08:15; Admin Dose 10 MG; Start 06/29/17 at 13:00 Losartan Potassium (Cozaar) 25 mg DAILY PO Last administered on 06/30/17t 08: 15; Admin Dose 25 MG; Start 06/29/17 at 13:00 Miscellaneous Information 500 mg Q12 PO ; Start 06/29/17 at 14:30; Status UNV Miscellaneous Information (*Order Clarification Bulletin) Naproxen* (Naproxen EC *) 500 M... Q8H XX ; Start 06/30/17 at 08:00 NORMA CORDOBA MD Jun 30, 2017 09:52
[2017-06-30 13:52] VITALS: BP 125/62; RESP 18
--- NOTE | 2017-06-30 17:46 | PN ---
Date/Time of Note Date/Time of Note DATE: 06/30/17 TIME: 17:34 Assessment/Plan Lines/Catheters IV C[facility]ter Type (from [facility]): Saline Lock Awad in Place (from Nrs): No Assessment/Plan Chief Complaint/Hosp Course 1. Abdominal pain, significant leukocytosis, with imaging findings could be secondary to acalculous cholecystitis versus hepatitis versus fatty liver disease versus other: LFT's, wbc normalized; refusing surgery -cont abx -advance diet -monitoring for worsening symptoms -outpatient follow up 2. Diabetes with ketonuria -Diet and medication optimization encouraged -Weight optimization encouraged 3. Hypertension -Diet and medication optimization encouraged -Weight optimization encouraged 4. Anemia: no acute bleed noted -Monitor and transfuse prn 5. Steatosis and BMI 27 with central obesity -Encourage nutrition optimization -Encourage exercise 6. West Nile encephalitis history -Per medical team 7. Guillain [place] -Medical optimization 8. Diverticulosis -Diet and nutritional optimization Thank you. Patient seen and examined in collaboration with Dr. Michael Otoole. Problems: Subjective 24 Hr Interval Summary Feels much improved. Continues to refuse surgery. No c/o abdominal pain, n/v/d/d /dysuria, cp, palpitations, baez, dizziness. +bowel function. Leukocytosis resolved. Exam/Review of Systems Vital Signs Vitals Vital Signs Date Time Temp Pulse Resp B/P Pulse Ox O2 Delivery O2 Flow Rate FiO2 06/30/17 13:52 98.8 64 18 125/62 98 06/26/17 23:31 Room Air Intake and Output 06/29/17 06/29/17 06/30/17 15:00 23:00 07:00 Intake Total 750 ml 1320 ml 580 ml Output Total 600 ml Balance 750 ml 720 ml 580 ml Exam Free Text/Dictation Constitutional: alert, obese, oriented, No distress Psych: nl mood/affect (Central), No anxiety, No confusion Head: atraumatic, normocephalic Eyes: EOMI, PERRL, nl conjunctiva, icteric ENMT: mucosa pink and moist, nl external ears & nose, nl lips & teeth Neck: non-tender, No jvd Respiratory: normal air movement, No congested cough, No labored breathing, No wheezing Cardiovascular: nl pulses, regular rate and rhythm, No edema Gastrointestinal: distended,non tender, soft, No rebound or guarding Genitourinary - Male: nl scrotum Musculoskeletal: nl extremities to inspection, nl gait and stance Extremities: normal pulses, No calf tenderness, No cyanosis Neurological: nl mental status, nl speech Skin: nl turgor, No diaphoresis, No rash or lesions Lymph: nl lymph nodes, nontender Results Result Diagram: 06/30/17 0521 06/30/17 0521 JOSE VARGAS NP Jun 30, 2017 17:46
[2017-06-30 20:00] VITALS: BP 153/69; PULSE 56; RESP 20
[2017-06-30] MEDS: NAPROXEN 500 MG TAB PO SCH (20:44)
[2017-06-30] MEDS: DOXAZOSIN 2 MG TAB PO SCH (20:46)
--- NOTE | 2017-06-30 22:21 | CONS ---
Date/Time of Note Date/Time of Note DATE: 06/30/17 TIME: 22:20 Consult Date/Type/Reason Admit Date/Time Jun 26, 2017 at 22:59 Initial Consult Date 06/26/17 Type of Consultation: ID Ordering Provider: JAMES LYON MD Objective Vital Signs Date Time Temp Pulse Resp B/P Pulse Ox O2 Delivery O2 Flow Rate FiO2 06/30/17 20:00 98.1 56 20 153/69 97 Room Air Intake and Output 06/29/17 06/29/17 06/30/17 14:59 22:59 06:59 Intake Total 750 ml 1320 ml 580 ml Output Total 600 ml Balance 750 ml 720 ml 580 ml Results/Medications Result Diagram: 06/30/1752006/30/17520 Results 24 hrs Laboratory Tests Test 06/30/17 02:12 06/30/17 05:21 06/30/17 08:10 06/30/17 12:22 Bedside Glucose 142 122 132 White Blood Count 8.6 # Red Blood Count 4.35 L Hemoglobin 11.6 L Hematocrit 36.4 L Mean Corpuscular Volume 83.7 Mean Corpuscular Hemoglobin 26.7 L Mean Corpuscular Hemoglobin Concent 31.9 L Red Cell Distribution Width 15.4 H Platelet Count 221 Mean Platelet Volume 12.1 H Neutrophils % 61.9 Lymphocytes % 18.1 Monocytes % 14.7 H Eosinophils % 4.1 Basophils % 0.7 Nucleated Red Blood Cells % 0.0 Neutrophils # 5.4 Lymphocytes # 1.6 Monocytes # 1.3 H Eosinophils # 0.4 Basophils # 0.1 Nucleated Red Blood Cells # 0.0 Sodium Level 145 H Potassium Level 3.3 L Chloride Level 111 H Carbon Dioxide Level 27 Anion Gap 10 # Blood Urea Nitrogen 10 Creatinine 0.71 Glucose Level 115 # Calcium Level 8.5 Phosphorus Level 3.9 Magnesium Level 1.9 Total Bilirubin 0.7 Direct Bilirubin 0.00 Indirect Bilirubin 0.7 Aspartate Amino Transf (AST/SGOT) 23 Alanine Aminotransferase (ALT/SGPT) 53 Alkaline Phosphatase 88 Total Protein 6.7 Albumin 3.0 L Globulin 3.70 H Albumin/Globulin Ratio 0.81 Test 06/30/17 17:29 06/30/17 20:50 Bedside Glucose 139 223 H Medications Current Medications Ondansetron HCl (Zofran Inj) 4 mg Q6H PRN IV NAUSEA AND/OR VOMITING; Start at 20:30 Acetaminophen (Tylenol Tab) 650 mg Q6H PRN PO PAIN LEVEL 1-3 OR FEVER Last administered on 06/27/17 21:24; Admin Dose 650 MG; Start 06/26/17 at 20:30 Hydromorphone HCl (Dilaudid) 0.5 mg Q4H PRN IV SEVERE PAIN LEVEL 7-10 Last administered on 06/27/17 10:22; Admin Dose 0.5 MG; Start 06/26/17 at 20:30 Diagnostic Test (Pha) (Accu-Chek) 1 ea 02 XX Last administered on 06/30/17 02 :11; Admin Dose 1 EA; Start 06/27/17 at 02:00 Miscellaneous Information 1 ea NOTE XX ; Start 06/26/17 at 23:45 Glucose (Glutose) 15 gm Q15M PRN PO DECREASED GLUCOSE; Start 06/26/17 at 23:45 Glucose (Glutose) 22.5 gm Q15M PRN PO DECREASED GLUCOSE; Start 06/26/17 at 23: 45 Dextrose (D50w Syringe) 25 ml Q15M PRN IV DECREASED GLUCOSE; Start 06/26/17 at 23:45 Dextrose (D50w Syringe) 50 ml Q15M PRN IV DECREASED GLUCOSE; Start 06/26/17 at 23:45 Glucagon (Glucagen) 1 mg Q15M PRN IM DECREASED GLUCOSE; Start 06/26/17 at 23: 45 Glucose 15 gm 15 gm Q15M PRN BUCCAL DECREASED GLUCOSE; Start 06/26/17 at 23:45 Piperacillin Sod/ Tazobactam Sod (Zosyn 3.375gm/ 100 ml (Pmx)) 100 ml @ 200 mls /hr Q8 IVPB Last administered on 06/30/17 21:36; Admin Dose 200 MLS/HR; Start 06/27/17 at 14:00 Famotidine (Pepcid Iv) 20 mg Q12 IV Last administered on 06/30/17 20:45; Admin Dose 20 MG; Start 06/27/17 at 21:00; Stop 06/30/17 at 22:30 Insulin Glargine (Lantus) 10 unit DAILY@08 SC Last administered on 06/30/17 08:27; Admin Dose 10 UNIT; Start 06/29/17 at 08:00 Insulin Glargine (Lantus) 7 unit QHS SC Last administered on 06/30/17 20:52; Admin Dose 7 UNIT; Start 06/28/17 at 21:00 Hydralazine HCl (Apresoline) 5 mg Q6H PRN IV SBP ABOVE 170 Last administered on 06/28/17 20:12; Admin Dose 5 MG; Start 06/28/17 at 20:00 Doxazosin Mesylate (Cardura) 2 mg DAILY@21 PO Last administered on 06/30/17 20:46; Admin Dose 2 MG; Start 06/29/17 at 12:00 Gabapentin (Neurontin) 300 mg TID PO Last administered on 06/30/17 20:41; Admin Dose 300 MG; Start 06/29/17 at 13:00 Glipizide (Glucotrol Xl) 10 mg BID PO Last administered on 06/30/17 20:50; Admin Dose 10 MG; Start 06/29/17 at 13:00 Losartan Potassium (Cozaar) 25 mg DAILY PO Last administered on 06/30/17 08: 15; Admin Dose 25 MG; Start 06/29/17 at 13:00 Naproxen (Naprosyn) 500 mg BID PO Last administered on 06/30/17 20:44; Admin Dose 500 MG; Start 06/30/17 at 21:00 Pantoprazole (Protonix Tab) 40 mg DAILY@06 PO ; Start 07/01/17 at 06:00 Assessment/Plan Chief Complaint/Hosp Course SUBJECTIVE: No acute changes. The patient is alert, feels good, looks comfortable. MICROBIOLOGY: Blood culture on admission grew coagulase-negative staph species. Repeat blood cultures negative. DIAGNOSTICS: MRI of the abdomen revealed cholecystitis without visible cholelithiasis, no biliary ductal dilatation or MRI evidence of choledocholithiasis, fecal filled colon. ANTIMICROBIALS: Zosyn. PHYSICAL EXAMINATION: GENERAL: This is a well-nourished, well-developed elderly man who is awake, in no distress. HEENT: Head atraumatic, normocephalic. Sclerae anicteric. Buccal mucosa dry. NECK: Supple. CHEST: Rise symmetrical. Breath sounds clear. HEART: S1, S2. ABDOMEN: Soft, bowel tones present. EXTREMITIES: Without cyanosis or edema. SKIN: No jaundice, no cyanosis. ASSESSMENT: 1. Coagulase-negative Staphylococcus bacteremia consistent with contaminant. 2. Acute cholecystitis, no evidence of choledocholithiasis. 3. Diabetes. 4. Hypertension. 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 PLAN: Patient remains stable. Refusing surgery, continue abx, follow surgical and gastroenterology recommendations. [facility] staff Problems: LIZ AVILA NP Jun 30, 2017 22:21
[2017-07-01] MEDS: ACCU-CHEK XX SCH (02:00)
[2017-07-01] MEDS: PIPER-TAZO 3.375 GM IV (PMX) 100 ML IVPB SCH (05:40)
[2017-07-01] MEDS ORDERED: PANTOPRAZOLE (EC) 40 MG TAB PO SCH (06:00)
[2017-07-01 06:03] LABS: BASOPHIL # 0.1 10^3/ul (0.0-0.1); BASOPHILS % 0.8 % (0.0-2.0); EOSINOPHILS # 0.5 10^3/ul (0.0-0.5); EOSINOPHILS % 4.8 % (0.0-7.0); HEMATOCRIT 37.8 % (42.0-52.0); HEMOGLOBIN 11.7 g/dl (14.0-18.0); LYMPHOCYTES # 2.1 10^3/ul (0.8-2.9); LYMPHOCYTES % 22.1 % (15.0-51.0); MEAN CORPUSCULAR HEMOGLOBIN 26.1 pg (29.0-33.0); MEAN CORPUSCULAR VOLUME 84.4 fl (82.0-101.0); MEAN PLATELET VOLUME 12.1 fl (7.4-10.4); MONOCYTE # 1.4 10^3/ul (0.3-0.9); NEUTROPHIL # 5.4 10^3/ul (1.6-7.5); NEUTROPHILS % 56.1 % (39.0-77.0); PLATELET COUNT 252 10^3/UL (140-415); RED BLOOD COUNT 4.48 10^6/ul (4.70-6.10); RED CELL DISTRIBUTION WIDTH 15.7 % (11.5-14.5); WHITE BLOOD COUNT 9.5 10^3/ul (4.8-10.8)
[2017-07-01 06:46] LABS: ALBUMIN 3.1 g/dl (3.3-4.9); ALBUMIN/GLOBULIN RATIO 0.81; BILIRUBIN,INDIRECT 0.4 mg/dl (0-1.1); BILIRUBIN,TOTAL 0.4 mg/dl (0.2-1.3); CALCIUM 8.6 mg/dl (8.4-10.2); CREATININE 0.8 mg/dl (0.61-1.24); POTASSIUM 3.7 mmol/L (3.5-5.1); TOTAL PROTEIN 6.9 g/dl (6.1-8.1)
[2017-07-01 07:36] VITALS: BP 137/68; RESP 20
[2017-07-01] MEDS: INSULIN ASPART [NOVOLOG] 3 ML PEN SC SCH ×2 (08:29→12:13)
[2017-07-01] MEDS: INSULIN GLARGINE [LANtus] 3 ML PEN SC SCH (08:30)
[2017-07-01] MEDS: LOSARTAN 25 MG TAB PO SCH (09:08)
[2017-07-01] MEDS: glipiZIDE (XL) 5 MG TAB PO SCH (09:08)
[2017-07-01] MEDS: GABAPENTIN 100 MG CAP PO SCH (09:08)
[2017-07-01] MEDS: NAPROXEN 500 MG TAB PO SCH (09:08)
--- NOTE | 2017-07-01 10:15 | PDOCDIS ---
Discharge Instructions DIAGNOSIS Discharge Diagnosis Cholecystitis CONDITION Patient Condition: Fair HOME CARE INSTRUCTIONS: Diet Instructions: Low Fat /CholesterolSpecial Diet: 1800 ADA ACTIVITY: Activity Restrictions: Slowly Increase Activity FOLLOW UP/APPOINTMENTS Follow-up Plan F/U PCP in 2 weeks Return to ER if has recurrent abdominal pain/fevers and chills NORMA CORDOBA MD Jul 01, 2017 10:15
[2017-07-01] MEDS ORDERED: CIPR250S3 PO (10:17)
[2017-07-01] MEDS ORDERED: METR-111 PO (10:17)
--- NOTE | 2017-07-01 12:39 | CONS ---
Date/Time of Note Date/Time of Note DATE: 07/01/17 TIME: 12:38 Consult Date/Type/Reason Admit Date/Time Jun 26, 2017 at 22:59 Initial Consult Date 06/26/17 Type of Consultation: ID Ordering Provider: JAMES LYON MD Objective Vital Signs Date Time Temp Pulse Resp B/P Pulse Ox O2 Delivery O2 Flow Rate FiO2 07/01/17 07:36 98.6 62 20 137/68 97 06/30/17 20:00 Room Air Intake and Output 06/30/17 06/30/17 07/01/17 15:00 23:00 07:00 Intake Total 100 ml 1300 ml 600 ml Output Total 200 ml Balance 100 ml 1300 ml 400 ml Results/Medications Result Diagram: 07/01/17 0452 07/01/17 0451 Results 24 hrs Laboratory Tests Test 06/30/17 17:29 06/30/17 20:50 07/01/17 01:59 07/01/17 04:51 Bedside Glucose 139 223 H 157 Sodium Level 144 Potassium Level 3.7 Chloride Level 108 Carbon Dioxide Level 29 Anion Gap 11 Blood Urea Nitrogen 10 Creatinine 0.80 Glucose Level 143 Calcium Level 8.6 Total Bilirubin 0.4 Direct Bilirubin 0.00 Indirect Bilirubin 0.4 Aspartate Amino Transf (AST/SGOT) 20 Alanine Aminotransferase (ALT/SGPT) 46 Alkaline Phosphatase 92 Total Protein 6.9 Albumin 3.1 L Globulin 3.80 H Albumin/Globulin Ratio 0.81 Test 07/01/17 04:52 07/01/17 08:19 07/01/17 12:03 White Blood Count 9.5 Red Blood Count 4.48 L Hemoglobin 11.7 L Hematocrit 37.8 L Mean Corpuscular Volume 84.4 Mean Corpuscular Hemoglobin 26.1 L Mean Corpuscular Hemoglobin Concent 31.0 L Red Cell Distribution Width 15.7 H Platelet Count 252 Mean Platelet Volume 12.1 H Neutrophils % 56.1 Lymphocytes % 22.1 Monocytes % 15.0 H Eosinophils % 4.8 Basophils % 0.8 Nucleated Red Blood Cells % 0.0 Neutrophils # 5.4 Lymphocytes # 2.1 Monocytes # 1.4 H Eosinophils # 0.5 Basophils # 0.1 Nucleated Red Blood Cells # 0.0 Bedside Glucose 142 149 Medications Current Medications Ondansetron HCl (Zofran Inj) 4 mg Q6H PRN IV NAUSEA AND/OR VOMITING; Start at 20:30 Acetaminophen (Tylenol Tab) 650 mg Q6H PRN PO PAIN LEVEL 1-3 OR FEVER Last administered on 06/27/17 21:24; Admin Dose 650 MG; Start 06/26/17 at 20:30 Hydromorphone HCl (Dilaudid) 0.5 mg Q4H PRN IV SEVERE PAIN LEVEL 7-10 Last administered on 06/27/17 10:22; Admin Dose 0.5 MG; Start 06/26/17 at 20:30 Diagnostic Test (Pha) (Accu-Chek) 1 ea 02 XX Last administered on 07/01/17 02 :00; Admin Dose 1 EA; Start 06/27/17 at 02:00 Miscellaneous Information 1 ea NOTE XX ; Start 06/26/17 at 23:45 Glucose (Glutose) 15 gm Q15M PRN PO DECREASED GLUCOSE; Start 06/26/17 at 23:45 Glucose (Glutose) 22.5 gm Q15M PRN PO DECREASED GLUCOSE; Start 06/26/17 at 23: 45 Dextrose (D50w Syringe) 25 ml Q15M PRN IV DECREASED GLUCOSE; Start 06/26/17 at 23:45 Dextrose (D50w Syringe) 50 ml Q15M PRN IV DECREASED GLUCOSE; Start 06/26/17 at 23:45 Glucagon (Glucagen) 1 mg Q15M PRN IM DECREASED GLUCOSE; Start 06/26/17 at 23: 45 Glucose 15 gm 15 gm Q15M PRN BUCCAL DECREASED GLUCOSE; Start 06/26/17 at 23:45 Piperacillin Sod/ Tazobactam Sod (Zosyn 3.375gm/ 100 ml (Pmx)) 100 ml @ 200 mls /hr Q8 IVPB Last administered on 07/01/17 05:40; Admin Dose 200 MLS/HR; Start 06/27/17 at 14:00 Insulin Glargine (Lantus) 10 unit DAILY@08 SC Last administered on 07/01/17 08:30; Admin Dose 10 UNIT; Start 06/29/17 at 08:00 Insulin Glargine (Lantus) 7 unit QHS SC Last administered on 06/30/17 20:52; Admin Dose 7 UNIT; Start 06/28/17 at 21:00 Hydralazine HCl (Apresoline) 5 mg Q6H PRN IV SBP ABOVE 170 Last administered on 06/28/17 20:12; Admin Dose 5 MG; Start 06/28/17 at 20:00 Doxazosin Mesylate (Cardura) 2 mg DAILY@21 PO Last administered on 06/30/17 20:46; Admin Dose 2 MG; Start 06/29/17 at 12:00 Gabapentin (Neurontin) 300 mg TID PO Last administered on 07/01/17 09:08; Admin Dose 300 MG; Start 06/29/17 at 13:00 Glipizide (Glucotrol Xl) 10 mg BID PO Last administered on 07/01/17 09:08; Admin Dose 10 MG; Start 06/29/17 at 13:00 Losartan Potassium (Cozaar) 25 mg DAILY PO Last administered on 07/01/17 09: 08; Admin Dose 25 MG; Start 06/29/17 at 13:00 Naproxen (Naprosyn) 500 mg BID PO Last administered on 07/01/17 09:08; Admin Dose 500 MG; Start 06/30/17 at 21:00 Pantoprazole (Protonix Tab) 40 mg DAILY@06 PO Last administered on 07/01/17 05:40; Admin Dose 40 MG; Start 07/01/17 at 06:00 Assessment/Plan Chief Complaint/Hosp Course SUBJECTIVE: No acute changes. The patient is alert, feels good, no fevers, no n/v/d looks comfortable. MICROBIOLOGY: Blood culture on admission grew coagulase-negative staph species. Repeat blood cultures negative. DIAGNOSTICS: MRI of the abdomen revealed cholecystitis without visible cholelithiasis, no biliary ductal dilatation or MRI evidence of choledocholithiasis, fecal filled colon. ANTIMICROBIALS: Zosyn. PHYSICAL EXAMINATION: GENERAL: This is a well-nourished, well-developed elderly man who is awake, in no distress. HEENT: Head atraumatic, normocephalic. Sclerae anicteric. Buccal mucosa dry. NECK: Supple. CHEST: Rise symmetrical. Breath sounds clear. HEART: S1, S2. ABDOMEN: Soft, bowel tones present. EXTREMITIES: Without cyanosis or edema. SKIN: No jaundice, no cyanosis. ASSESSMENT: 1. Coagulase-negative Staphylococcus bacteremia consistent with contaminant. 2. Acute cholecystitis, no evidence of choledocholithiasis==> clinically improved. 3. Diabetes. 4. Hypertension. 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 PLAN: Patient remains stable. Refused surgery, ok dc on PO Levaquin and Flagyl for couple more days, surgical and gastroenterology recommendations. [facility] staff Problems: LIZ AVILA NP Jul 01, 2017 12:39
--- NOTE | 2017-07-02 04:31 | DS ---
DATE OF ADMISSION: 06/26/2017 DATE OF DISCHARGE: 07/01/2017 HISTORY OF PRESENTING ILLNESS AND HOSPITAL COURSE: A 66-year-old male with a past medical history o f diabetes, Guillain-[place] syndrome, history of appendectomy, West Nile infection history, presented to [facility] secondary to abdominal pain, fever and nausea. The patient was noted to hav e blood pressure 117/59. Glucose 238, potassium 4.9. White blood cell count was 24.9. Patient had ultrasound of the gallbladder that showed no evidence of cholecystitis, lithiasis or acute cholecys titis. However, patient had also chest x-ray that showed no active cardiopulmonary disease. The [facility] had CT of the abdomen and pelvis that showed a distended gallbladder with wall thickening, per icholecystic edema concerning for acute cholecystitis. Recent ultrasound was negative for gallstone s. This could represent acalculous acute cholecystitis. Alternatively, gallbladder wall thickening may be due to liver disease and recommended a HIDA scan. Patient also had HIDA scan done that show ed nonvisualization of gallbladder up to 90 minutes. No evidence of common bile duct obstruction. Patient also was seen by GI consultation with , also surgical consultation with Dr. Otoole . The patient was kept n.p.o., IV fluids and IV Zosyn. Patient had MRI that showed cholecystitis w ithout visible cholelithiasis, no ductal dilatation or MRI evidence of choledocholithiasis, fecal-fi lled colon. Dr. Otoole offered the patient surgery, cholecystectomy; however, the patient was refu sing surgery. When the patient was explained about the risk and benefit, patient declined. Patient said that he would rather go with conservative management. Repeated conversations were done with t he patient with the surgeon and everything was explained, but still patient wanted conservative catherine tment. The patient was continued on IV Zosyn. White count came down to 9.5. Initial blood culture was positive on 06/26/2017 but that was coagulase negative Staph. Repeat blood cultures were negat jourdan. A urine culture was negative. C. diff was negative. Currently, the patient was started on di et, which was able to tolerate it without any side effects and the patient is currently being discha rged home. FINAL DIAGNOSES: 1. Acute acalculous cholecystitis. The patient's white count was 24, came down to 9.5 on discharge status post IV Zosyn. The patient wanted conservative treatment, refused a cholecystectomy due to the fear of complications. 2. Leukocytosis, 24 came down to 9.5 on discharge, secondary to #1. 3. Diabetes. 4. Hypertension. 5. Steatosis with of 27. 6. History of West Nile infection in the past. 7. History of Guillain-[place]. 8. History of lactic acidosis that was resolved. DISCHARGE INSTRUCTIONS: 1. The patient was instructed to follow with the PCP in 1 week. 2. The patient was instructed to continue with Cipro 250 b.i.d. for 10 days and also Flagyl 250 t.i .d. for 10 days. The patient was strictly instructed to return to the ER if he has worsening abdomi nal pain, nausea, vomiting, fevers and chills. Dictated By: NORMA GEORGE/MARQUIS Conf#: [id number] DID#: [id number]
== END 2017-07-01 13:10 | disposition home or self-care (01) | DRG 445 ==
LOC: E/R 14:51 → MS2 22:38 → MERGE 22:59 → MS2 22:59
PROVIDERS: ADMIT Internal Medicine Nephrology; ATTEND Internal Medicine Nephrology
DX: K81.0 Acute cholecystitis (principal); G61.0 Guillain-Barre syndrome; E87.2 Acidosis; E88.89 Other specified metabolic disorders; I10 Essential (primary) hypertension; E11.9 Type 2 diabetes mellitus without complications; D64.9 Anemia, unspecified; E66.9 Obesity, unspecified; K57.90 Diverticulosis of intestine, part unspecified, without perforation or abscess without bleeding; Z68.31 Body mass index [BMI] 31.0-31.9, adult
CPT/HCPCS: 36415; 71010; 74177; 74181; 76705; 78226; 80053; 80202; 81001; 82150; 82270; 82962; 83036; 83605; 83690; 83735; 84100; 85025; 85610; 87040; 87075; 87086; 96365; 96366; 96375; A9537; C9113; J0360; J1815; J2270; J2405; J2543; J3370; J7030; J7040; J7042; J7050; Q9967

== ENCOUNTER 2018-04-11 05:48 | Day surgery (SDC) | END 2018-04-11 14:33 | disposition home or self-care (01) ==

== ENCOUNTER 2018-05-12 06:00 | Day surgery (SDC) | END 2018-05-12 10:17 | disposition home or self-care (01) ==